=== PATIENT | female | born 1950 | race Caucasian/White ===

== ENCOUNTER → 2016-10-13 | Outpatient (REF) | payer MEDICARE ==
[2016-10-13 12:44] LABS: ALBUMIN 3.5 GM/DL (3.2-5.2); ALBUMIN/GLOBULIN RATIO 1.17 (1.00-1.93); ALKALINE PHOSPHATASE 80 U/L (45-117); ALT/SGPT 26 U/L (12-78); ANION GAP 11 MEQ/L (8-16); AST/SGOT 12 U/L (15-37); BILIRUBIN,TOTAL 0.4 MG/DL (0.2-1.0); BLOOD UREA NITROGEN 17 MG/DL (7-18); CALCIUM LEVEL 9.3 MG/DL (8.8-10.2); CARBON DIOXIDE LEVEL 29 MEQ/L (21-32); CHLORIDE LEVEL 102 MEQ/L (98-107); CHOLESTEROL LEVEL 250 MG/DL (<200); CREATININE FOR GFR 0.87 MG/DL (0.55-1.02); GLOMERULAR FILTRATION RATE > 60.0 (>45); GLUCOSE, FASTING 87 MG/DL (80-110); POTASSIUM SERUM 3.9 MEQ/L (3.5-5.1); SODIUM LEVEL 142 MEQ/L (136-145); TOTAL PROTEIN 6.5 GM/DL (6.4-8.2); TRIGLYCERIDES LEVEL 224 MG/DL (<150)
== END ==
LOC: M LABDRAW1 11:42
PROVIDERS: ATTEND Emergency Medicine
DX: M35.3 Polymyalgia rheumatica (principal); I10 Essential (primary) hypertension; E78.2 Mixed hyperlipidemia

== ENCOUNTER → 2016-11-15 | Outpatient (REF) | payer MEDICARE | LOC: M LABDRAW1 11:24 | PROVIDERS: ATTEND Emergency Medicine | DX: M35.3 Polymyalgia rheumatica (principal) ==

== ENCOUNTER → 2016-12-06 | Outpatient (REF) | payer MEDICARE | LOC: M LABDRAW1 10:58 | PROVIDERS: ATTEND Emergency Medicine | DX: M35.3 Polymyalgia rheumatica (principal) ==

== ENCOUNTER → 2017-01-11 | Outpatient (REF) | payer MEDICARE | LOC: M LABDRAW1 11:31 | PROVIDERS: ATTEND Emergency Medicine | DX: M35.3 Polymyalgia rheumatica (principal) ==

== ENCOUNTER → 2017-02-10 | Outpatient (REF) | payer MEDICARE | LOC: M LABDRAW1 12:02 | PROVIDERS: ATTEND Emergency Medicine | DX: M35.3 Polymyalgia rheumatica (principal) ==

== ENCOUNTER → 2017-03-07 | Outpatient (REF) | payer MEDICARE ==
[2017-03-07 11:50] LABS: ALBUMIN 3.6 GM/DL (3.2-5.2); ALKALINE PHOSPHATASE 87 U/L (45-117); ALT/SGPT 25 U/L (12-78); ANION GAP 6 MEQ/L (8-16); AST/SGOT 12 U/L (15-37); BILIRUBIN,TOTAL 0.5 MG/DL (0.2-1.0); BLOOD UREA NITROGEN 15 MG/DL (7-18); CALCIUM LEVEL 9.2 MG/DL (8.8-10.2); CARBON DIOXIDE LEVEL 30 MEQ/L (21-32); CHLORIDE LEVEL 99 MEQ/L (98-107); CHOLESTEROL LEVEL 254 MG/DL (<200); CREATININE FOR GFR 0.88 MG/DL (0.55-1.02); FREE T4 1.42 NG/DL (0.76-1.46); GLOMERULAR FILTRATION RATE > 60.0 (>45); GLUCOSE, FASTING 91 MG/DL (80-110); POTASSIUM SERUM 3.4 MEQ/L (3.5-5.1); SODIUM LEVEL 135 MEQ/L (136-145); TOTAL PROTEIN 6.6 GM/DL (6.4-8.2); TRIGLYCERIDES LEVEL 256 MG/DL (<150)
== END ==
LOC: M LABDRAW1 11:14
PROVIDERS: ATTEND Emergency Medicine
DX: M35.3 Polymyalgia rheumatica (principal); I10 Essential (primary) hypertension; E78.2 Mixed hyperlipidemia; E03.9 Hypothyroidism, unspecified; E55.9 Vitamin D deficiency, unspecified

== ENCOUNTER → 2017-04-12 | Outpatient (REF) | payer MEDICARE ==
[~2017-04-12] MED LIST: ASPI1TAB PO; CALC600T57 PO; DRIS50002 PO; LEVO137T2 PO; LOSA100T5 PO; METO1TAB7 PO; MULT1TAB10 PO; OMEP40CA2 PO; PRED5TA PO; SPIR25TA2 PO
== END ==
LOC: M LABDRAW1 13:49
PROVIDERS: ATTEND Emergency Medicine
DX: M35.3 Polymyalgia rheumatica (principal)

== ENCOUNTER → 2017-05-10 | Outpatient (REF) | payer MEDICARE | LOC: M LABDRAW1 11:29 | PROVIDERS: ATTEND Emergency Medicine | DX: M35.3 Polymyalgia rheumatica (principal) ==

== ENCOUNTER → 2017-05-24 | Outpatient (REF) | payer MEDICARE ==
[2017-05-24 11:13] LABS: ALBUMIN 3.4 GM/DL (3.2-5.2); ANION GAP 7 MEQ/L (8-16); BLOOD UREA NITROGEN 17 MG/DL (7-18); CALCIUM LEVEL 9.3 MG/DL (8.8-10.2); CARBON DIOXIDE LEVEL 29 MEQ/L (21-32); CHLORIDE LEVEL 105 MEQ/L (98-107); CREATININE FOR GFR 0.79 MG/DL (0.55-1.02); GLOMERULAR FILTRATION RATE > 60.0 (>45); GLUCOSE, FASTING 94 MG/DL (80-110); PHOSPHORUS LEVEL 3.6 MG/DL (2.5-4.9); SODIUM LEVEL 141 MEQ/L (136-145)
== END ==
LOC: M LABDRAW1 10:20
PROVIDERS: ATTEND Emergency Medicine
DX: M35.3 Polymyalgia rheumatica (principal); I10 Essential (primary) hypertension

== ENCOUNTER → 2017-05-25 | Outpatient (REF) | payer MEDICARE ==
[2017-05-25 13:09] LABS: BLOOD UREA NITROGEN 20 MG/DL (7-18); CREATININE FOR GFR 0.77 MG/DL (0.55-1.02); GLOMERULAR FILTRATION RATE > 60.0 (>45)
== END ==
LOC: M LABDRAW1 07:42
PROVIDERS: ATTEND Surgery
DX: R59.9 Enlarged lymph nodes, unspecified (principal)

== ENCOUNTER → 2017-05-30 | Outpatient (CLI) | payer MEDICARE ==
[~2017-05-30] MED LIST changes: +ISOVUE-370 76% 100ML VIAL (Q9967) As Ordered ONE
--- NOTE | 2017-05-30 09:20 | REP ---
Clinical: Adenopathy. Technique: Axial contrast enhanced images from the thoracic inlet to the upper abdomen using 100 ml Isovue 370 intravenous contrast material with coronal and sagittal re-formations. Comparison: None. Findings: In the anterior, subpleural left upper lobe there is a 3.5 x 2.5 x 2.0 cm ill-defined area of consolidation/density with suggestions for scarring/fibrosis extending towards the hilum (images 25 - 35). While these findings may be related to prior radiation therapy for left breast malignancy, an acute process including pneumonia and malignancy cannot be excluded. The bilateral lung cedeno are otherwise well aerated. No pleural effusion. No pneumothorax. Tracheobronchial tree is patent. Partially calcified subcarinal and left hilar lymph nodes are identified which may also be in keeping with prior therapeutic changes. Mildly prominent lymph nodes in the left axillary region measure up to 10 mm short axis diameter and a solitary lymph node in the left thoracic inlet measures approximately 19 mm short axis diameter (image 5). Postoperative changes involving the left breast are consistent with history of prior left breast cancer. The osseous structures are relatively unremarkable and without focal osseous abnormality. Limited evaluation of the upper abdomen demonstrates normal bilateral adrenal glands. Impression: 3.5 cm ill-defined mass/density in the subpleural anterior left upper lobe. Mildly prominent lymph nodes in the left axillary region and left thoracic inlet. While these findings may be chronic post-therapeutic type changes related to prior breast cancer treatment, active pathology cannot be excluded. Follow-up examination in 3 months and/or PET-CT correlation may be warranted. Signed by Yo Walton MD 05/30/2017 09:12 A
--- NOTE | 2017-05-30 12:56 | REP ---
CT NECK WITH CONTRAST: HISTORY: Enlarged lymph nodes. CONTRAST: Isovue-370, 100 mL. The naso-, brennon-, and hypopharynx, larynx, and subglottic trachea are normal in appearance. The salivary glands are normal in size and density. The thyroid gland is small in size. Enlarged lymph nodes are present in the left supraclavicular area. These measure 1.3 to 2.4 cm in size. Small lymph nodes less than 1 cm in size are present in the __internal jugular chains, posterior triangles, and submandibular areas. Atherosclerotic calcification is present at the right carotid bifurcation. Degenerative change is present in the cervical spine. The lung apices are clear. The visualized sinuses are clear. IMPRESSION: There is left supraclavicular lymphadenopathy, as described above. Signed by Marco A Orosco MD 05/30/2017 01:09 P
== END ==
LOC: M RAD 07:31
PROVIDERS: ATTEND Surgery
DX: R59.0 Localized enlarged lymph nodes (principal); D38.1 Neoplasm of uncertain behavior of trachea, bronchus and lung
CPT/HCPCS: 70491; 71260; Q9967

== ENCOUNTER → 2017-06-12 | Outpatient (CLI) | payer MEDICARE ==
[~2017-06-12] MED LIST changes: -ISOVUE-370 76% 100ML VIAL (Q9967) As Ordered ONE
--- NOTE | 2017-06-12 21:36 | ECGEPIP ---
Stationary ECG Study [facility] Test Date: 2017-06-12 Pat Name: CANDIDO PEARSON Department: Room: - Gender: F Field Contact Person: : 1950 Requested By: GEOVANNI Molina Order Number: [id number] Reading MD: Greg Huizar Measurements Intervals [place] Rate: 81 P: 38 SC: 142 QRS: -3 QRSD: 86 T: 22 QT: 356 QTc: 416 Interpretive Statements Normal sinus rhythm with PACs Comparison tracing not on file Electronically Signed On 06-12-2017 21:36:27 EDT by Greg Huizar
== END ==
LOC: M EKG 07:47
PROVIDERS: ATTEND Anesthesiology
DX: Z01.818 Encounter for other preprocedural examination (principal); R59.9 Enlarged lymph nodes, unspecified; I10 Essential (primary) hypertension; E03.9 Hypothyroidism, unspecified; K21.9 Gastro-esophageal reflux disease without esophagitis; K57.30 Diverticulosis of large intestine without perforation or abscess without bleeding; M19.90 Unspecified osteoarthritis, unspecified site

== ENCOUNTER 2017-06-13 10:38 | Day surgery (SDC) | payer MEDICARE ==
[~2017-06-13] VITALS: Ht 154.9 cm; Wt 90.7 kg
[~2017-06-13 10:38] MED LIST changes: +KETOROLAC 60 MG/2 ML VIAL (J1885) As Ordered ONE; +LIDOCAINE 2% INJ 100 MG/5 ML SDV (FOR ANES.) As Ordered ONE; +MIDAZOLAM INJ 2 MG/2 ML VIAL (J2250) As Ordered ONE; +ONDANSETRON 4MG/2ML VIAL (J2405) As Ordered ONE; +PROPOFOL 200 MG/20 ML VIAL As Ordered ONE; +dexameTHASONE 4 MG/ML 1ML VIAL (J1100) As Ordered ONE; +fentaNYL 100 MCG/2 ML INJECTION (J3010) As Ordered ONE
[2017-06-13] MEDS ORDERED: LR 1,000 ML IV SCH (10:45)
[2017-06-13] MEDS ORDERED: ceFAZolin SOD 1 GM in D5W MINI-BAG PLUS 50 ML IV ONE (11:00)
[2017-06-13] MEDS ORDERED: LIDOCAINE 1% SDV 5 ML VIAL SQ ONE (11:00)
[2017-06-13] MEDS ORDERED: ISOSULFAN BLUE(LYMPHAZURIN) 1% 50MG/5ML VIAL (Q9968) As Ordered ONE (12:59)
[2017-06-13] MEDS ORDERED: BUPIVACAINE/EPIN 0.25% 30 ML VIAL As Ordered ONE (12:59)
--- NOTE | 2017-06-13 13:51 | RO ---
DATE OF PROCEDURE: 06/13/2017 PREOPERATIVE DIAGNOSIS: Supraclavicular enlarged lymph nodes/left neck lymph nodes. POSTOPERATIVE DIAGNOSIS: Supraclavicular enlarged lymph nodes/left neck lymph nodes. PROCEDURE PERFORMED: Excision of left supraclavicular lymph nodes. SURGEON: Dr. Hossein Nunes. ANESTHESIA: Local plus sedation. ESTIMATED BLOOD LOSS: Minimal. FLUIDS: Crystalloid. DESCRIPTION OF PROCEDURE: The patient was brought to the operating room was given IV sedation and was prepped and draped in sterile fashion. Local lidocaine mixed with epinephrine was infiltrated in the skin. In the subcutaneous tissue overlying the lesion in the subcutaneous area in the left neck CT had confirmed that there was multiple enlarged lymph nodes along this tract into the mediastinum and this incision was made with 15-blade. Blunt dissection was carried down through the subcutaneous tissue down through platysma and the lymph node could be palpated. Using some blunt dissection, but mostly electrocautery and the subcutaneous tissue to take down the fine attachments as well as some small branching lymphatics, the lesion was removed in its entirety. Additional lymph nodes could be palpated more distally/deeper in the neck. Once this lymph node, actually was two lymph nodes which refused together were removed, the inguinal area was copiously irrigated until clear. The operative field was clean and dry and the platysma was closed with #3-0 Vicryl. dermis was closed with #3-0 Vicryl, #4-0 Vicryl was used to approximate the skin. Steri-Strips and a dry sterile dressing was applied. The patient was awakened from her sedation brought to recovery room awake, alert and hemodynamically stable. Sponge and needle counts correct times two.
[2017-06-13 14:35] VITALS: BP 149/83
== END 2017-06-13 14:39 | disposition home or self-care (01) ==
LOC: M SDC 10:38
PROVIDERS: ATTEND Surgery
DX: R59.0 Localized enlarged lymph nodes (principal); I10 Essential (primary) hypertension; E03.9 Hypothyroidism, unspecified; K57.32 Diverticulitis of large intestine without perforation or abscess without bleeding; K21.9 Gastro-esophageal reflux disease without esophagitis; M12.9 Arthropathy, unspecified; M35.3 Polymyalgia rheumatica; Z88.7 Allergy status to serum and vaccine; Z79.899 Other long term (current) drug therapy; Z79.82 Long term (current) use of aspirin; Z85.3 Personal history of malignant neoplasm of breast; Z90.710 Acquired absence of both cervix and uterus; Z92.21 Personal history of antineoplastic chemotherapy; Z92.3 Personal history of irradiation; Z87.891 Personal history of nicotine dependence
CPT/HCPCS: 38500; 88305; 88341; 88342; J0690; J1885; J2250; J2405; J3010

== ENCOUNTER → 2017-06-23 | Outpatient (REF) | payer MEDICARE ==
[~2017-06-23] MED LIST changes: -KETOROLAC 60 MG/2 ML VIAL (J1885) As Ordered ONE; -LIDOCAINE 2% INJ 100 MG/5 ML SDV (FOR ANES.) As Ordered ONE; -MIDAZOLAM INJ 2 MG/2 ML VIAL (J2250) As Ordered ONE; -ONDANSETRON 4MG/2ML VIAL (J2405) As Ordered ONE; -PROPOFOL 200 MG/20 ML VIAL As Ordered ONE; -dexameTHASONE 4 MG/ML 1ML VIAL (J1100) As Ordered ONE; -fentaNYL 100 MCG/2 ML INJECTION (J3010) As Ordered ONE
[2017-06-23 12:19] LABS: ALBUMIN 3.5 GM/DL (3.2-5.2); ANION GAP 8 MEQ/L (8-16); BLOOD UREA NITROGEN 14 MG/DL (7-18); CALCIUM LEVEL 9.5 MG/DL (8.8-10.2); CARBON DIOXIDE LEVEL 28 MEQ/L (21-32); CHLORIDE LEVEL 98 MEQ/L (98-107); GLOMERULAR FILTRATION RATE > 60.0 (>45); GLUCOSE, FASTING 97 MG/DL (80-110); PHOSPHORUS LEVEL 3.4 MG/DL (2.5-4.9); POTASSIUM SERUM 3.9 MEQ/L (3.5-5.1); SODIUM LEVEL 134 MEQ/L (136-145)
== END ==
LOC: M LABDRAW1 09:22
PROVIDERS: ATTEND Emergency Medicine
DX: M35.3 Polymyalgia rheumatica (principal); I10 Essential (primary) hypertension

== ENCOUNTER → 2017-07-03 | Outpatient (CLI) | payer MEDICARE ==
--- NOTE | 2017-07-03 14:01 | REP ---
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 Uncertain etiology. Comparison mammography August 26, 2014, August 31, 2015, and September 07, 2016. MAMMOGRAPHIC FINDINGS: There are post-treatment changes including deformity in the left superior and lateral breast unchanged from both prior studies. No neodensity is seen. There is a surgical clip in the left axilla. There is a calcification in the superolateral quadrant on the left as before. No spiculation, architectural distortion, suspicious microcalcification, or worrisome skin change is seen on either side. IMPRESSION: Post-treatment changes on the left which are stable mammographically. BIRADS category 2 benign bilateral breast imaging. Repeat screening mammography would be indicated in 1 year. BI-RADS/ACR category 2 mammogram. Benign finding(s). Routine annual screening mammography (for women over age 40). This mammogram was interpreted with the aid of an FDA-approved computer-aided detection system. The patient states she/he had a clinical breast exam in June 2017 The patient letter being requested is M2. Signed by Aram Judd MD 07/03/2017 02:16 P
== END ==
LOC: M RAD 12:52
PROVIDERS: ATTEND Internal Medicine Medical Oncology
DX: C50.912 Malignant neoplasm of unspecified site of left female breast (principal); R91.1 Solitary pulmonary nodule

== ENCOUNTER → 2017-07-04 | Outpatient (CLI) | payer MEDICARE ==
--- NOTE | 2017-07-04 17:07 | REP ---
PET/CT: History: Malignant neoplasm lymph node. Unknown primary. Comparisons: Comparison soft-tissue neck CT study is May 30, [address] study from the same date. TECHNIQUE: 1 hour 49 minutes following the intravenous injection of a 8.7 mCi dose of F-18 FDG, three-dimensional PET scintigraphy is acquired from the skull base to the proximal thighs. Triplanar noncontrast CT scanning is acquired through the same anatomic range for attenuation correction, and image registration with scan parameters optimized to minimize radiation exposure to the patient. PET scintigraphy and CT datasets were fused and displayed on a workstation with multiplanar and projection display capability. PET/CT Findings: There is fairly extensive hypermetabolic uptake in multiple shayy foci involving the left axilla, the left subclavicular, and left supraclavicular lymph node chains as well as one small left internal jugular lymph node. Maximum standard uptake value in the highest lymph node in the left neck is 20.8. Maximum standard uptake value in the large confluent shayy mass in the left thoracic inlet supraclavicular region is 24.7. There is a small shayy focus just anterior to the left thyroid gland with maximum standard uptake value 7.8. The left subpectoral lymph node has maximum standard uptake value of 16.1. The largest left axillary node has maximum standard uptake value of 17.8. There is post-treatment change in the left breast. There is a tiny nodule in the medial left breast which is hypermetabolic. Maximum standard uptake value is 5.1 in this 4-5 mm nodule. No intrathoracic hypermetabolic uptake is seen. The left upper lobe peripheral subpleural opacity in the left chest shows non hypermetabolic uptake, maximum standard uptake value 2.2. No abnormal hypermetabolic uptake is seen in the liver. No abnormal abdominal or pelvic hypermetabolic FDG accumulation is seen. No suspicious skeletal hypermetabolic uptake is seen. Impression: Findings most compatible with recurrent left breast malignancy with a 5 mm hypermetabolic nodule in the medial left breast soft tissues and left axillary, left retro pectoral, left supraclavicular and left neck hypermetabolic shayy uptake. Non hypermetabolic uptake is seen in the left upper lobe pulmonary parenchymal opacity. Signed by Aram Judd MD 07/04/2017 05:33 P
== END ==
LOC: M PLARAD 12:14
PROVIDERS: ATTEND Surgery
DX: C77.9 Secondary and unspecified malignant neoplasm of lymph node, unspecified (principal); Z85.3 Personal history of malignant neoplasm of breast
CPT/HCPCS: 78815; A9552

== ENCOUNTER → 2017-07-06 | Outpatient (CLI) | payer MEDICARE ==
--- NOTE | 2017-07-06 14:33 | REP ---
WHOLE BODY RADIONUCLIDE BONE SCAN: HISTORY: Left breast carcinoma. Left lung mass. Left supraclavicular adenopathy. TECHNIQUE: 21.9 mCi technetium 99m MDP is injected and standard whole body bone scan imaging is acquired. SCINTIGRAPHIC FINDINGS: There is a normal distribution of skeletal uptake with bilateral renal and bladder uptake seen. There is no evidence to suggest skeletal metastatic disease. There is mild arthritic uptake in the acromioclavicular joints bilaterally and in the 1st MTP joints of each foot. There is minimal arthritic uptake in the hips. IMPRESSION: No evidence of skeletal metastatic disease. Signed by Aram Judd MD 07/06/2017 05:11 P
== END ==
LOC: M RAD 10:40
PROVIDERS: ATTEND Internal Medicine Medical Oncology
DX: C50.912 Malignant neoplasm of unspecified site of left female breast (principal); R91.8 Other nonspecific abnormal finding of lung field; R59.9 Enlarged lymph nodes, unspecified
CPT/HCPCS: 78306; A9503

== ENCOUNTER → 2017-07-10 | Outpatient (REF) | payer MEDICARE ==
[2017-07-10 19:18] LABS: INR 0.91
== END ==
LOC: M LAB REF 17:07
PROVIDERS: ATTEND Internal Medicine Medical Oncology
DX: C50.919 Malignant neoplasm of unspecified site of unspecified female breast (principal)

== ENCOUNTER → 2017-07-19 | Outpatient (CLI) | payer MEDICARE ==
[~2017-07-19] MED LIST changes: +PROHANCE 279.3MG/ML 15ML VIAL (A9576) As Ordered ONE; +PROHANCE 279.3MG/ML 5ML VIAL (A9576) As Ordered ONE
--- NOTE | 2017-07-19 11:14 | REP ---
MRI BRAIN WITHOUT AND WITH IV CONTRAST: HISTORY: Newly diagnosed breast carcinoma. Question metastases. TECHNIQUE: Pre- and post-gadolinium enhanced imaging is acquired. T1 and T2-weighted sequences include spin echo, fast spin echo, FLAIR, and diffusion weighted scans. The gadolinium enhancement dose is 18 mL of intravenous ProHance. MRI FINDINGS: Bony calvarium is intact. No intraorbital abnormality is seen. The deep facial and skull base soft tissues are unremarkable. There is no MR evidence of significant paranasal sinus disease. Diffusion weighted scan show no evidence to suggest acute ischemia. There is no evidence of intracranial hemorrhage. No significant abnormal white matter lesion is seen. Post gadolinium enhanced images show enhancement of normal vascular structures. No abnormal gadolinium enhancement is seen. IMPRESSION: There is no evidence of intracranial metastatic disease. No acute intracranial lesion. Signed by Aram Judd MD 07/19/2017 02:17 P
== END ==
LOC: M RAD 09:21
PROVIDERS: ATTEND Internal Medicine Medical Oncology
DX: C50.912 Malignant neoplasm of unspecified site of left female breast (principal); C79.89 Secondary malignant neoplasm of other specified sites
CPT/HCPCS: 70553; A9576

== ENCOUNTER → 2017-08-28 | Outpatient (REF) | payer MEDICARE ==
[~2017-08-28] MED LIST changes: -PROHANCE 279.3MG/ML 15ML VIAL (A9576) As Ordered ONE; -PROHANCE 279.3MG/ML 5ML VIAL (A9576) As Ordered ONE
== END ==
LOC: M LAB REF 13:59
PROVIDERS: ATTEND Internal Medicine Medical Oncology
DX: C50.919 Malignant neoplasm of unspecified site of unspecified female breast (principal)

== ENCOUNTER → 2017-09-21 | Outpatient (REF) | payer MEDICARE | LOC: M LAB REF 12:58 | DX: C50.919 Malignant neoplasm of unspecified site of unspecified female breast (principal) | CPT/HCPCS: 86300 ==

== ENCOUNTER → 2017-10-31 | Outpatient (CLI) | payer MEDICARE | LOC: M PLARAD 10:29 | DX: C50.919 Malignant neoplasm of unspecified site of unspecified female breast (principal) | CPT/HCPCS: 78815 ==

== ENCOUNTER 2017-11-23 08:12 | Day surgery (SDC) | payer MEDICARE ==
[2017-11-23] MEDS ORDERED: LIDOCAINE 1% MDV 20ML VIAL SQ (08:30)
[2017-11-23] MEDS: OFLOXACIN 0.3 % (OCUFLOX) OPTH SOL 5ML OD (09:01)
[2017-11-23] MEDS: TROPICAMIDE 1% OPHTH SOLN 2ML OD (09:01)
[2017-11-23] MEDS: PHENYLEPHRINE 2.5% OPHTH SOL 2ML OD (09:02)
[2017-11-23] MEDS: PROPARACAINE 0.5% OPHTH SOL 15ML OD (09:02)
[2017-11-23] MEDS ORDERED: fentaNYL 100 MCG/2 ML INJECTION (J3010) As Ordered (09:26)
[2017-11-23] MEDS ORDERED: MIDAZOLAM INJ 2 MG/2 ML VIAL (J2250) As Ordered (09:26)
[2017-11-23] MEDS: POVIDONE-IODINE 5% OPHTH PREP SOL 30ML As Ordered (09:45)
[2017-11-23] MEDS: BALANCED SALT IRRIGATION SOLUTION 500ML BAG (FOR OR EYE MACHINE) As Ordered (09:49)
[2017-11-23] MEDS: LIDOCAINE 0.75%/EPINEPHRINE 0.025% IN BSS 1ML SYR INTRACAMERAL (OR ONLY) As Ordered (09:49)
[2017-11-23] MEDS: DUOVISC (0.50ML VISCOAT/0.55ML PROVISC) OPHTH KIT As Ordered (09:54)
[2017-11-23] MEDS: CEFUROXIME 1MG/0.1ML INTRACAMERAL INJ As Ordered (09:54)
== END 2017-11-23 10:38 | disposition home or self-care (01) ==
LOC: M SDC 08:12
DX: H25.11 Age-related nuclear cataract, right eye (principal); I10 Essential (primary) hypertension; E03.9 Hypothyroidism, unspecified; K21.9 Gastro-esophageal reflux disease without esophagitis; K57.32 Diverticulitis of large intestine without perforation or abscess without bleeding; Z87.891 Personal history of nicotine dependence; Z79.899 Other long term (current) drug therapy; M35.3 Polymyalgia rheumatica
CPT/HCPCS: 66984

== ENCOUNTER 2017-11-30 08:06 | Day surgery (SDC) | payer MEDICARE ==
[~2017-11-30 08:06] MED LIST changes: -ASPI1TAB PO; -CALC600T57 PO; -DRIS50002 PO; -LEVO137T2 PO; -LOSA100T5 PO; -METO1TAB7 PO; -MULT1TAB10 PO; -OMEP40CA2 PO; +PHENYLEPHRINE 2.5% OPHTH SOL 2ML OS; -PRED5TA PO; -SPIR25TA2 PO
[2017-11-30] MEDS ORDERED: MIDAZOLAM INJ 2 MG/2 ML VIAL (J2250) As Ordered (08:59)
[2017-11-30] MEDS ORDERED: fentaNYL 100 MCG/2 ML INJECTION (J3010) As Ordered (08:59)
[2017-11-30] MEDS: PROPARACAINE 0.5% OPHTH SOL 15ML OS (09:34)
[2017-11-30] MEDS: TROPICAMIDE 1% OPHTH SOLN 2ML OS (09:34)
[2017-11-30] MEDS: OFLOXACIN 0.3 % (OCUFLOX) OPTH SOL 5ML OS (09:34)
[2017-11-30] MEDS: CEFUROXIME 1MG/0.1ML INTRACAMERAL INJ As Ordered (10:50)
[2017-11-30] MEDS: TRYPAN BLUE 0.06 % 2.25 ML OPHTH SYR (VISIONBLUE) As Ordered (10:50)
[2017-11-30] MEDS: BALANCED SALT IRRIGATION SOLUTION 500ML BAG (FOR OR EYE MACHINE) As Ordered (10:50)
[2017-11-30] MEDS: POVIDONE-IODINE 5% OPHTH PREP SOL 30ML As Ordered (10:50)
[2017-11-30] MEDS: LIDOCAINE 0.75%/EPINEPHRINE 0.025% IN BSS 1ML SYR INTRACAMERAL (OR ONLY) As Ordered (10:50)
[2017-11-30] MEDS: DUOVISC (0.50ML VISCOAT/0.55ML PROVISC) OPHTH KIT As Ordered (10:50)
[2017-11-30] MEDS: ACETYLCHOLINE OPHTH SOLN 1% 2ML (MIOCHOL-E) As Ordered (11:05)
== END 2017-11-30 11:47 | disposition home or self-care (01) ==
LOC: M SDC 08:06
DX: H25.12 Age-related nuclear cataract, left eye (principal); I10 Essential (primary) hypertension; K21.9 Gastro-esophageal reflux disease without esophagitis; Z85.3 Personal history of malignant neoplasm of breast; E03.9 Hypothyroidism, unspecified; Z79.899 Other long term (current) drug therapy
CPT/HCPCS: 66984

== ENCOUNTER → 2017-12-04 | Outpatient (REF) | payer MEDICARE ==
[2017-12-06 00:11] LABS: CA 27.29 20.7 U/mL (0.0-38.6)
== END ==
LOC: M LAB REF 13:52
DX: C50.919 Malignant neoplasm of unspecified site of unspecified female breast (principal)
CPT/HCPCS: 86300

== ENCOUNTER → 2017-12-14 | Outpatient (REF) | payer MEDICARE ==
[2017-12-14 11:52] LABS: TOTAL 25(OH) VITAMIN D 55.4 NG/ML (30.0-100.0)
[2017-12-14 12:04] LABS: ALBUMIN/GLOBULIN RATIO 1.18 (1.00-1.93); ALKALINE PHOSPHATASE 108 U/L (45-117); ALT/SGPT 16 U/L (12-78); ANION GAP 9 MEQ/L (8-16); AST/SGOT 13 U/L (7-37); BILIRUBIN,TOTAL 0.6 MG/DL (0.2-1.0); BLOOD UREA NITROGEN 16 MG/DL (7-18); CALCIUM LEVEL 9.2 MG/DL (8.8-10.2); CARBON DIOXIDE LEVEL 28 MEQ/L (21-32); CHLORIDE LEVEL 103 MEQ/L (98-107); CHOLESTEROL LEVEL 205 MG/DL (<200); CREATININE FOR GFR 1.03 MG/DL (0.55-1.30); FREE T4 1.63 NG/DL (0.76-1.46); GLOMERULAR FILTRATION RATE 56.6 (>45); GLUCOSE, FASTING 112 MG/DL (70-100); HDL CHOLESTEROL 61 MG/DL (>40); LDL CHOLESTEROL 99.2 MG/DL (<100); NON-HDL-C 144 MG/DL; POTASSIUM SERUM 4.2 MEQ/L (3.5-5.1); SODIUM LEVEL 140 MEQ/L (136-145); TOTAL PROTEIN 7.4 GM/DL (6.4-8.2); TRIGLYCERIDES LEVEL 224 MG/DL (<150)
== END ==
LOC: M LABDRAW1 10:43
DX: E55.9 Vitamin D deficiency, unspecified (principal); E03.9 Hypothyroidism, unspecified; E78.2 Mixed hyperlipidemia; I10 Essential (primary) hypertension
CPT/HCPCS: 84443

== ENCOUNTER → 2018-01-11 | Outpatient (REF) | payer MEDICARE ==
[2018-01-13 00:07] LABS: CA 27.29 16.4 U/mL (0.0-38.6)
== END ==
LOC: M LAB REF 13:35
DX: C50.312 Malignant neoplasm of lower-inner quadrant of left female breast (principal); C77.4 Secondary and unspecified malignant neoplasm of inguinal and lower limb lymph nodes; Z17.1 Estrogen receptor negative status [ER-]
CPT/HCPCS: 86300

== ENCOUNTER → 2018-02-12 | Outpatient (REF) | payer MEDICARE ==
[2018-02-14 00:06] LABS: CA 27.29 18.1 U/mL (0.0-38.6)
== END ==
LOC: M LAB REF 12:55
DX: Z08 Encounter for follow-up examination after completed treatment for malignant neoplasm (principal); Z85.3 Personal history of malignant neoplasm of breast
CPT/HCPCS: 86300

== ENCOUNTER → 2018-03-05 | Outpatient (CLI) | payer MEDICARE ==
[~2018-03-05] MED LIST changes: +GASTROGRAFIN SOLUTION 30ML (Q9963) As Ordered; +ISOVUE-370 76% 100ML VIAL (Q9967) As Ordered; -PHENYLEPHRINE 2.5% OPHTH SOL 2ML OS
== END ==
LOC: M RAD 10:17
DX: C50.919 Malignant neoplasm of unspecified site of unspecified female breast (principal)
CPT/HCPCS: Q9963

== ENCOUNTER → 2018-03-22 | Outpatient (REF) | payer MEDICARE ==
[2018-03-24 00:07] LABS: CA 27.29 15.7 U/mL (0.0-38.6)
== END ==
LOC: M LAB REF 10:36
DX: Z85.3 Personal history of malignant neoplasm of breast (principal)
CPT/HCPCS: 86300

== ENCOUNTER → 2018-04-19 | Outpatient (REF) | payer MEDICARE ==
[2018-04-21 00:08] LABS: CA 27.29 18.3 U/mL (0.0-38.6)
== END ==
LOC: M LAB REF 10:44
DX: Z85.3 Personal history of malignant neoplasm of breast (principal)
CPT/HCPCS: 86300

== ENCOUNTER → 2018-06-13 | Outpatient (REF) | payer MEDICARE ==
[2018-06-13 14:26] LABS: ALBUMIN/GLOBULIN RATIO 1.18 (1.00-1.93); ALKALINE PHOSPHATASE 125 U/L (45-117); ALT/SGPT 18 U/L (12-78); ANION GAP 11 MEQ/L (8-16); AST/SGOT 12 U/L (7-37); BILIRUBIN,TOTAL 0.6 MG/DL (0.2-1.0); BLOOD UREA NITROGEN 16 MG/DL (7-18); CALCIUM LEVEL 9.7 MG/DL (8.8-10.2); CARBON DIOXIDE LEVEL 27 MEQ/L (21-32); CHLORIDE LEVEL 101 MEQ/L (98-107); CHOLESTEROL LEVEL 245 MG/DL (<200); CHOLESTEROL RISK RATIO 2.987 (<5); CREATININE FOR GFR 0.93 MG/DL (0.55-1.30); FREE T4 1.52 NG/DL (0.76-1.46); GLOMERULAR FILTRATION RATE > 60.0 (>45); GLUCOSE, FASTING 106 MG/DL (70-100); HDL CHOLESTEROL 82 MG/DL (>40); LDL CHOLESTEROL 118 MG/DL (<100); NON-HDL-C 163 MG/DL; POTASSIUM SERUM 4.2 MEQ/L (3.5-5.1); SODIUM LEVEL 139 MEQ/L (136-145); THYROID STIMULATING HORMONE 0.812 uIU/ML (0.358-3.740); TOTAL 25(OH) VITAMIN D 62.4 NG/ML (30.0-100.0); TOTAL PROTEIN 7.4 GM/DL (6.4-8.2); TRIGLYCERIDES LEVEL 227 MG/DL (<150)
[2018-06-13 15:48] LABS: ESTIMATED AVERAGE GLUCOSE 111 MG/DL (60-110); HEMOGLOBIN A1c 5.5 %
== END ==
LOC: M LABDRAW1 11:46
DX: I10 Essential (primary) hypertension (principal); E78.2 Mixed hyperlipidemia; E03.9 Hypothyroidism, unspecified; R73.01 Impaired fasting glucose
CPT/HCPCS: 84443

== ENCOUNTER → 2018-08-15 | Outpatient (CLI) | payer MEDICARE | LOC: M RAD 14:50 | DX: C50.919 Malignant neoplasm of unspecified site of unspecified female breast (principal); R59.0 Localized enlarged lymph nodes; I65.21 Occlusion and stenosis of right carotid artery; N28.1 Cyst of kidney, acquired; M50.20 Other cervical disc displacement, unspecified cervical region | CPT/HCPCS: Q9963 ==

== ENCOUNTER → 2018-08-24 | Outpatient (CLI) | payer MEDICARE | LOC: M SMT 09:44 | DX: Z01.818 Encounter for other preprocedural examination (principal); J98.4 Other disorders of lung | CPT/HCPCS: 71046 ==

== ENCOUNTER 2018-08-28 10:34 | Day surgery (SDC) | payer MEDICARE ==
[2018-08-28] MEDS: MUPIROCIN 2% OINT 22 GM TUBE TOP (11:00)
[2018-08-28] MEDS: LR 1,000 ML IV (11:00)
[2018-08-28] MEDS: LIDOCAINE 1% MDV 20ML VIAL As Ordered (12:09)
[2018-08-28] MEDS ORDERED: fentaNYL 100 MCG/2 ML INJECTION (J3010) As Ordered (13:10)
[2018-08-28] MEDS ORDERED: PROPOFOL 200 MG/20 ML VIAL As Ordered ×2 (13:10→13:47)
[2018-08-28] MEDS ORDERED: MIDAZOLAM INJ 2 MG/2 ML VIAL (J2250) As Ordered (13:10)
[2018-08-28] MEDS ORDERED: ePHEDrine SULFATE 25 MG/5 ML(5MG/ML) SYRINGE As Ordered (13:13)
[2018-08-28] MEDS: HEPARIN SOD (PORCINE) 5000 UNITS/ML VIAL As Ordered (14:00)
[2018-08-28] MEDS: BUPIVACAINE LIPOSOME/PF 1.3% 20ML VIAL (13.3MG/ML)(EXPAREL)(C9290 PER1MG) As Ordered (14:00)
== END 2018-08-28 15:10 | disposition home or self-care (01) ==
LOC: M SDC 10:34
DX: C50.912 Malignant neoplasm of unspecified site of left female breast (principal); Z45.2 Encounter for adjustment and management of vascular access device; I10 Essential (primary) hypertension; E03.9 Hypothyroidism, unspecified; K21.9 Gastro-esophageal reflux disease without esophagitis; Z79.82 Long term (current) use of aspirin; Z79.899 Other long term (current) drug therapy
CPT/HCPCS: 36561

== ENCOUNTER → 2018-09-10 | Outpatient (CLI) | payer MEDICARE ==
[~2018-09-10] MED LIST changes: +ASPI1TAB PO; +CALC600T57 PO; +CAPE1TAB2 PO; +DRIS50003 PO; -GASTROGRAFIN SOLUTION 30ML (Q9963) As Ordered; -ISOVUE-370 76% 100ML VIAL (Q9967) As Ordered; +LEVO137T2 PO; +LOSA100T5 PO; +METO1TAB7 PO; +MULT1TAB10 PO; +OMEP20CA3 PO; +OMEP40CA2 PO; +PRED5TA PO; +PROC10TA4 PO; +SERT-138 PO; +SPIR-10 PO; +ZOFR8TAB24 PO
--- NOTE | 2018-09-10 10:21 | REP ---
Chest x-ray: Two views. History: Malignant neoplasm of the female breast. Gatjxe-X-Ckig placement. Comparison study: August 28, 2018. Findings: A left subclavian Jkknlq-L-Sics catheter is seen in place with its tip in the expected location of the superior vena cava. There are surgical clips in the left axillary soft tissues. There is a levoconvex thoracolumbar spine curvature unchanged. The lungs are well inflated and free of infiltrate. There is a granulomatous calcification again noted in the left base. No infiltrate is seen. No pleural effusion is noted. Heart is not enlarged. Impression: Levoconvex scoliotic curve. A left-sided Fkyrss-V-Iipu catheter. No acute disease. Electronically Signed by Aram Judd MD 09/10/2018 07:56 P
== END ==
LOC: M SMT 08:25
PROVIDERS: ATTEND Thoracic Surgery (Cardiothoracic Vascular Surgery)
DX: Z01.818 Encounter for other preprocedural examination (principal); C50.919 Malignant neoplasm of unspecified site of unspecified female breast; M53.85 Other specified dorsopathies, thoracolumbar region; J98.4 Other disorders of lung; Z97.8 Presence of other specified devices

== ENCOUNTER → 2018-11-19 | Outpatient (CLI) | payer MEDICARE ==
[~2018-11-19] MED LIST changes: +EMLA CREAM 5GM (LIDOCAINE/PRILOCAINE) As Ordered ONE; +GASTROGRAFIN SOLUTION 30ML (Q9963) As Ordered ONE; +ISOVUE-370 76% 100ML VIAL (Q9967) As Ordered ONE; +ZOLO100T PO
--- NOTE | 2018-11-19 13:30 | REP ---
Clinical: Metastatic breast cancer for restaging. Technique: Axial contrast enhanced images from the thoracic inlet to the upper abdomen with coronal and sagittal re-formations using 100 ml Isovue 370 intravenous contrast material. Comparison: 08/15/2018. Findings: Somewhat nodular 3 cm area of irregular opacity in the subpleural anterior left upper lobe (images 35-45) with associated interstitial scarring remains stable and is likely related to post radiation type change. Remainder of lung cedeno are well-aerated and without further consolidation, significant nodule or mass lesion. No effusion. No pneumothorax. Tracheobronchial tree is patent. Mediastinum demonstrates atherosclerotic changes to the thoracic aorta and coronary arteries without aortic aneurysm or dissection. No cardiomegaly or pericardial effusion. No significant mediastinal, hilar, or axillary adenopathy is appreciated, and the previously noted prominent left axillary lymph nodes have resolved. Calcified lymph nodes are again noted. The osseous structures are intact without focal abnormality appreciated. Impression: 1. Nodular area of opacity in the subpleural anterior left upper lobe remains stable. 2. Previously identified left axillary adenopathy has resolved. 3. No acute mediastinal or pleuroparenchymal process appreciated. Specifically, no obvious evidence for acute recurrence or metastatic disease. Electronically Signed by Yo Walton MD 11/19/2018 01:22 P
--- NOTE | 2018-11-19 13:36 | REP ---
Clinical: History of metastatic breast cancer for restaging. Technique: Axial contrast enhanced images from the lung bases to the pubic symphysis using oral (per protocol) and 100 ml Isovue 370 intravenous contrast material with delayed images of the abdomen as well as coronal and sagittal re-formations. Comparison: 08/15/2018. Findings: Lung bases are clear. Small hiatal hernia. Visualized heart and pericardium within normal limits. Liver, spleen, pancreas, gallbladder, bilateral adrenal glands and kidneys are relatively normal / stable. Subcentimeter renal cysts are again noted and unchanged. No evidence for bowel obstruction. Normal terminal ileum and cecum identified in the right lower quadrant. Scattered colonic and sigmoid diverticula noted without acute diverticulitis. Pelvis demonstrates normal bladder and evidence for prior hysterectomy. No ascites. No free air. No adenopathy. Abdominal aorta without aneurysm or dissection. Musculoskeletal structures demonstrate degenerative changes without focal osseous abnormality. Impression: 1. Small hiatal hernia. 2. Stable subcentimeter renal cysts. 3. No acute abdominopelvic pathology appreciated. 4. Scattered diverticula without acute diverticulitis. Electronically Signed by Yo Walton MD 11/19/2018 01:28 P
--- NOTE | 2018-11-19 13:47 | REP ---
CT NECK WITH CONTRAST: HISTORY: Breast carcinoma. CONTRAST: Isovue 370, 100 mL. COMPARISON: 08/15/2018. The naso-, brennon-, and hypopharynx, larynx and subglottic trachea are normal in appearance. The salivary glands are normal in size and density. The thyroid gland is hypoplastic. Small lymph nodes less than 1 cm in size are present in the internal jugular chains, posterior triangles, and submandibular areas. Atherosclerotic calcification is present at the right carotid bifurcation. Degenerative change is present in the cervical spine. The lung apices are clear. The visualized sinuses are clear. IMPRESSION: There is no neck mass or adenopathy. Electronically Signed by Marco A Orosco MD 11/19/2018 01:54 P
== END ==
LOC: M RAD 11:23
PROVIDERS: ATTEND Internal Medicine Medical Oncology
DX: C50.919 Malignant neoplasm of unspecified site of unspecified female breast (principal); R91.1 Solitary pulmonary nodule; N28.1 Cyst of kidney, acquired; K44.9 Diaphragmatic hernia without obstruction or gangrene; K57.90 Diverticulosis of intestine, part unspecified, without perforation or abscess without bleeding
CPT/HCPCS: 70491; 71260; 74177; Q9963; Q9967

== ENCOUNTER → 2018-12-19 | Outpatient (REF) | payer MEDICARE ==
[~2018-12-19] MED LIST changes: -EMLA CREAM 5GM (LIDOCAINE/PRILOCAINE) As Ordered ONE; -GASTROGRAFIN SOLUTION 30ML (Q9963) As Ordered ONE; -ISOVUE-370 76% 100ML VIAL (Q9967) As Ordered ONE
[2018-12-19 12:26] LABS: ALBUMIN 4.1 GM/DL (3.2-5.2); ALT/SGPT 17 U/L (12-78); BILIRUBIN,TOTAL 0.4 MG/DL (0.2-1.0); BLOOD UREA NITROGEN 14 MG/DL (7-18); CALCIUM LEVEL 9.1 MG/DL (8.8-10.2); CARBON DIOXIDE LEVEL 28 MEQ/L (21-32); CHLORIDE LEVEL 104 MEQ/L (98-107); CHOLESTEROL LEVEL 246 MG/DL (<200); CREATININE FOR GFR 0.84 MG/DL (0.55-1.30); FREE T4 1.14 NG/DL (0.76-1.46); GLOMERULAR FILTRATION RATE > 60.0 (>39); GLUCOSE, FASTING 104 MG/DL (70-100); HDL CHOLESTEROL 75 MG/DL (>40); LDL CHOLESTEROL 128 MG/DL (<100); NON-HDL-C 171 MG/DL; POTASSIUM SERUM 4.4 MEQ/L (3.5-5.1); SODIUM LEVEL 139 MEQ/L (136-145); TOTAL PROTEIN 6.9 GM/DL (6.4-8.2); TRIGLYCERIDES LEVEL 213 MG/DL (<150)
== END ==
LOC: M LABDRAW1 09:46
PROVIDERS: ATTEND Emergency Medicine
DX: I10 Essential (primary) hypertension (principal); E78.2 Mixed hyperlipidemia; E03.9 Hypothyroidism, unspecified; E55.9 Vitamin D deficiency, unspecified

== ENCOUNTER → 2019-01-29 | Outpatient (CLI) | payer MEDICARE ==
[~2019-01-29] MED LIST changes: -ASPI1TAB PO; +ASPI81TA26 PO; +ISOVUE-370 76% 100ML VIAL (Q9967) As Ordered ONE; +MULTCAP PO; +ZANTTAB PO
--- NOTE | 2019-01-30 09:43 | REP ---
CT CHEST WITH IV CONTRAST: CT ANGIO CHEST: TECHNIQUE: Axial contrast enhanced images from the thoracic inlet to the upper abdomen using 100 mL Isovue 370 intravenous contrast material with multiplanar reformations. COMPARISON: 11/19/2018 Calcified granuloma is again seen in the anterior segment of the right upper lobe. Another calcified granuloma is seen in the left lower lobe. The focal ill-defined oval subpleural opacity in the left upper lobe inferolaterally remains unchanged. This likely represents post radiation changes in this portion of the left upper lobe. No new abnormal lung opacities are seen. Multiple metallic clips are seen in the left axillary region. Mediport catheter is noted in the upper left chest wall. There are calcified subcarinal lymph nodes. There are also small calcified left hilar lymph nodes. No suspicious adenopathy is seen in the mediastinal, hilar or axillary regions. There is no pleural or pericardial effusion. The heart is mildly enlarged. There are mild atherosclerotic calcifications of the thoracic aorta without aneurysm. No significant upper abdominal abnormalities are seen. There are degenerative change of the spine. IMPRESSION: Stable CT chest with ill-defined focal left upper lobe opacity in a subpleural location most likely representing post radiation change. No new suspicious parenchymal nodule or adenopathy in the chest. There is evidence of prior granulomatous disease. Electronically Signed by Vu Merritt MD 01/30/2019 03:36 P
--- NOTE | 2019-01-30 10:03 | REP ---
SOFT-TISSUE NECK CT STUDY WITH IV CONTRAST: HISTORY: Restage breast cancer. COMPARISON: Neck CT study is from November 19, 2018. August 15, [address] study is also reviewed. CT CONTRAST DOSE: 100 mL of intravenous Isovue [address] FINDINGS: A left-sided Ianpix-F-Xxcj catheter is again seen. There are degenerative disc changes in the cervical spine. No bony destructive lesion is appreciated. A torus palatinus is again noted unchanged. This is a normal variant. Parotid and submandibular glands are normal and symmetric. Thyroid lobes are quite atrophic. This is unchanged as well. There are four or five left supraclavicular lymph nodes which are normal in size. These are unchanged from the prior study. The largest of these measures 10 mm in greatest diameter x 5 mm in short axis dimension. Just below this, there is a larger left supraclavicular lymph node which measures 12 x 9 x 16 mm. This has increased in size since the November 19, 2018 study when it measured 9 mm in greatest diameter. At this level and just posterior to and there are two other lymph nodes which are slightly larger than on the prior study but which remain normal in size. No other adenopathy is appreciated in the neck. Visualized paranasal sinuses are clear. No intraorbital abnormality is seen. IMPRESSION: Subtle increase in the size of two or three lymph nodes in the left supraclavicular region. The largest of these is borderline measuring 16 mm in greatest diameter. These are the lymph nodes which showed enlargement on August 15, 2018. Electronically Signed by Aram Judd MD 01/30/2019 03:38 P
== END ==
LOC: M RAD 16:10
PROVIDERS: ATTEND Internal Medicine Medical Oncology
DX: C50.912 Malignant neoplasm of unspecified site of left female breast (principal); Z92.3 Personal history of irradiation; R59.9 Enlarged lymph nodes, unspecified
CPT/HCPCS: 70491; 71260; Q9967

== ENCOUNTER → 2019-06-07 | Outpatient (CLI) | payer MEDICARE ==
[~2019-06-07] MED LIST changes: +LIDO2.5C15 TOP; -OMEP20CA3 PO; +OMEP20CA4 PO; +ZANT150T40 PO; -ZANTTAB PO
--- NOTE | 2019-06-07 08:34 | REP ---
CT of the soft tissue neck with contrast Indication: Restaging recurrent breast cancer. Comparison: CT neck of 01/29/2019. Technique: Axial CT of the soft tissue neck was performed following the uneventful intravenous administration of 100 ml Isovue 370. Coronal and sagittal soft tissue reformatted images were provided. Findings: A partially imaged left-sided central venous catheter is again seen. When compared to the 01/29/2019 examination, left supraclavicular lymph nodes have decreased in size. For example, an anterior 10 x 7 mm left supraclavicular lymph node, previously measured 12 x 8 mm (axial image 59). A posterior 7 x 5 mm irregularly marginated left supraclavicular lymph node previously measured 11 x 9 mm (image 59 of the axial series). Some smaller left supraclavicular lymph nodes are no longer visible. There are no newly enlarged cervical lymph nodes. Within the remainder of the neck, the nasal passages and nasopharynx, oropharynx and oral cavity, hypopharynx, upper airway and esophagus are within normal limits. Note is made of torus palatinus. There is mild pleural parenchymal scarring within the lung apices. There is to maintain residual thyroid tissue, similar to prior. The submandibular glands and parotid glands are unremarkable. The imaged portion of the brain parenchyma is within normal limits. The visible paranasal sinuses and mastoid air cells are clear. The the patient is edentulous. No suspicious focal osseous lesion is identified. Impression: Compared to the 01/29/2019 examination, there is decreased tumor burden as evidenced by decreased size and number of left supraclavicular lymph nodes. No new evidence of disease. Electronically Signed by Alisha Low MD 06/07/2019 08:26 A
--- NOTE | 2019-06-07 09:04 | REP ---
CT CHEST WITH IV CONTRAST: HISTORY: Restaging recurrent breast carcinoma. Comparison is made with chest CT study from January 29, 2019 and November 19, 2018. CT CONTRAST DOSE: 100 mL of intravenous Isovue [address] FINDINGS: Stable post radiation fibrosis changes are again noted in the left upper lobe anterolaterally unchanged from the two prior studies. There are surgical clips in the left axilla and a left-sided Sytvkd-H-Qnjw catheter is seen. There is no evidence of axillary or supraclavicular lymphadenopathy. No mediastinal or hilar adenopathy is seen. No pleural or pericardial effusion is observed. No adrenal lesion is seen. There are granulomatous calcifications in the spleen. A tiny 4 mm cyst is again noted in the dome of the liver unchanged. There is a 4 mm noncalcified nodular opacity in the right middle lobe on page 54 of 113 in series 404 of today's study. This is visible in retrospect on the patient's prior CT studies dating back to May 30, 2017. There are scattered pulmonary parenchymal calcified benign granulomas as well also unchanged. No new pulmonary nodule is seen. Impression: No active disease. 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 Electronically Signed by Aram Judd MD 06/07/2019 09:18 A
== END ==
LOC: M RAD 07:40
PROVIDERS: ATTEND Nurse Practitioner Family
DX: Z85.3 Personal history of malignant neoplasm of breast (principal)
CPT/HCPCS: 70491; 71260; Q9967

== ENCOUNTER → 2019-06-19 | Outpatient (REF) | payer MEDICARE ==
[~2019-06-19] MED LIST changes: -ISOVUE-370 76% 100ML VIAL (Q9967) As Ordered ONE; +KEFL250C11 PO
[2019-06-19 13:31] LABS: BILIRUBIN,TOTAL 0.3 MG/DL (0.2-1.0); CALCIUM LEVEL 9.2 MG/DL (8.8-10.2); CHOLESTEROL RISK RATIO 4.78 (<5); FREE T4 1.24 NG/DL (0.76-1.46); GLOMERULAR FILTRATION RATE 58.4 (>39); POTASSIUM SERUM 4.2 MEQ/L (3.5-5.1); THYROID STIMULATING HORMONE 1.77 uIU/ML (0.358-3.740); TOTAL 25(OH) VITAMIN D 49.3 NG/ML (30.0-100.0); TOTAL PROTEIN 6.8 GM/DL (6.4-8.2)
[2019-06-19 13:32] LABS: HEMOGLOBIN A1c 5.1 %
== END ==
LOC: M LABDRAW1 11:49
PROVIDERS: ATTEND Physician Assistant
DX: I10 Essential (primary) hypertension (principal); E78.2 Mixed hyperlipidemia; E03.9 Hypothyroidism, unspecified; E55.9 Vitamin D deficiency, unspecified; R73.01 Impaired fasting glucose; Z79.899 Other long term (current) drug therapy; Z79.82 Long term (current) use of aspirin

== ENCOUNTER → 2019-10-23 | Outpatient (CLI) | payer MEDICARE ==
[~2019-10-23] MED LIST changes: +GASTROGRAFIN SOLUTION 30ML (Q9963) As Ordered ONE; +ISOVUE-370 76% 100ML VIAL (Q9967) As Ordered ONE; +OMEP1CAP73 PO; -OMEP20CA4 PO; -OMEP40CA2 PO; +OMEP40CA97 PO; +VITA50005 PO
--- NOTE | 2019-10-23 09:35 | REPVR ---
PROCEDURE INFORMATION: Exam: CT Neck With Contrast Exam date and time: 10/23/2019 9:01 AM Age: 69 years old Clinical indication: Condition or disease; Cancer; Other: Restaging breast CA ? mets; Additional info: Restaging breast CA, mets? TECHNIQUE: Imaging protocol: Computed tomography images of the neck with intravenous contrast. Radiation optimization: All CT scans at this facility use at least one of these dose optimization techniques: automated exposure control; mA and/or kV adjustment per patient size (includes targeted exams where dose is matched to clinical indication); or iterative reconstruction. Contrast material: Isovue 370; Contrast volume: 75 ml; Contrast route: IV; COMPARISON: CT Neck with contrast 06/07/2019 8:08 AM FINDINGS: Orbits: Bilateral prior cataract surgery. Nasopharynx: Unremarkable. Oropharynx: See Bones/joints Finding. Hypopharynx: Unremarkable Larynx: Unremarkable. Normal epiglottis. Retropharyngeal space: Unremarkable. Submandibular/Parotid glands: Normal. Glands are normal in size. Thyroid: Small bilateral thyroid lobes (status post ablative therapy?). Lymph nodes: Unremarkable. No lymphadenopathy. Trachea: Visualized trachea is unremarkable. Lungs: Unremarkable as visualized. Vasculature: Left subclavian venous catheter, partially imaged. Dental: Edentulous maxilla and mandible. Bones/joints: Bones/joints. Torus palatinus, normal variant. Moderate atlantodental osteoarthritis. C5-6 degenerative disc disease with mild spondylosis. No destructive bony process identified. Soft tissues: Unremarkable. No significant soft tissue swelling. IMPRESSION: 1. No evidence of cervical metastatic disease. 2. Please see the CT chest report of the same date for additional findings. Electronically signed by: Colin Bey On 10/23/2019 09:34:48 AM
--- NOTE | 2019-10-23 12:31 | REP ---
CT of the chest with IV contrast for restaging of breast carcinoma: Comparisons are 06/07/2019 and 05/30/2017. There are surgical clips in the left axilla, unchanged. There is a focal zone of post radiation fibrosis anterolaterally in the left upper lobe, unchanged. There is a stable noncalcified 4 mm lung nodule in the right middle lobe on image 53, unchanged from both prior studies, therefore likely benign. There is a calcified granuloma in the right upper lobe anteriorly on image 27 and in the left lower lobe on image 65, unchanged. There are no new lung nodules or mass. There are no infiltrates or pleural effusions. There is no mediastinal, hilar or axillary lymph node enlargement. The thoracic aorta is unremarkable. Cardiac size is normal. No pericardial effusion. The visualized upper abdominal contents are unremarkable. Calcified granulomas are again identified in the spleen. Impression: There are stable findings. There are no new lung nodules or masses and no acute infiltrates or pleural effusions. There is no adenopathy. There are no lytic, blastic or destructive skeletal changes. Electronically Signed by Vu Crawford MD 10/23/2019 12:23 P
--- NOTE | 2019-10-23 12:50 | REP ---
CT of the abdomen and pelvis with IV and oral contrast for restaging of breast carcinoma, multiphase imaging: Comparison is 2018. The studies performed contiguously with the chest CT this same date. The visualized lung cedeno are unremarkable except for a left lower lobe calcified granuloma. The hepatic parenchyma is homogeneous. The gallbladder, pancreas and spleen are unremarkable except for splenic calcified granulomas. The adrenals are unremarkable. There is a small Bosniak type 1 left renal cortical cyst, unchanged. The kidneys are otherwise unremarkable. The abdominal aorta is unremarkable. There is no periaortic adenopathy or mass. The bowel and mesentery are unremarkable except for descending colon/sigmoid colon diverticula without diverticulitis. This is unchanged. Pelvis: There is no adenopathy or ascites. There is a hysterectomy. Vaginal cuff and adnexa are unremarkable. The bladder is unremarkable. There are no lytic, blastic or destructive skeletal changes. There is lumbar degenerative disc disease at L4-5. Impression: No evidence of metastatic disease. Stable Bosniak type 1 left renal cyst, unchanged. L4-5 degenerative disc disease, unchanged. Electronically Signed by Vu Crawford MD 10/23/2019 12:41 P
== END ==
LOC: M RAD 07:24
PROVIDERS: ATTEND Internal Medicine Medical Oncology
DX: C50.919 Malignant neoplasm of unspecified site of unspecified female breast (principal)
CPT/HCPCS: 70491; 71260; 74177; Q9963; Q9967

== ENCOUNTER → 2019-10-24 | Outpatient (CLI) | payer MEDICARE ==
[~2019-10-24] MED LIST changes: -GASTROGRAFIN SOLUTION 30ML (Q9963) As Ordered ONE; -ISOVUE-370 76% 100ML VIAL (Q9967) As Ordered ONE
--- NOTE | 2019-10-25 07:29 | REP ---
Left upper extremity duplex Doppler venous ultrasound. Real time compression and duplex Doppler evaluation of the left upper extremity deep venous system is performed. The left subclavian, jugular, axillary, brachial, basilic and cephalic veins are fully compressible where accessible with transducer pressure, and demonstrate no intraluminal thrombus and normal venous waveforms. There is no evidence of deep venous thrombosis. Impression: No evidence of deep venous thrombosis of the left upper extremity deep vein system. Electronically Signed by Vu Merritt MD 10/24/2019 11:47 A
== END ==
LOC: M RAD 10:55
PROVIDERS: ATTEND Internal Medicine Medical Oncology
DX: M79.602 Pain in left arm (principal)

== ENCOUNTER → 2020-01-28 | Outpatient (CLI) | payer MEDICARE ==
[~2020-01-28] MED LIST changes: +GASTROGRAFIN SOLUTION 30ML (Q9963) As Ordered ONE; +ISOVUE-370 76% 100ML VIAL As Ordered ONE
--- NOTE | 2020-01-28 14:52 | REP ---
REASON: Followup history of breast carcinoma. COMPARISON: Multiple all reviewed, the latest 10/23/2019. CONTRAST: 100 mL Isovue 370. The mediastinum and pulmonary shi are stable. There is no mass or adenopathy. There are no pleural or pericardial effusions. Bone window technique throughout the exam shows the osseous structures to be stable and intact. Evaluation of the lung cedeno shows no change in the appearance of the spiculated pleural-based mixed density mass in the left upper lobe. There is an incidental calcified granuloma in the left lower lobe. There is a tiny stable 4 mm sized nodule in the right middle lobe. No new abnormal nodules, masses or opacities have developed. IMPRESSION: 1. Stable CT examination of the chest. The pleural based, somewhat spiculated mixed density mass seen in the left upper lobe has been stable for years. 2. Other stable findings as described above. Electronically Signed by Deni Mejia DO 01/28/2020 04:23 P
--- NOTE | 2020-01-28 15:05 | REP ---
REASON FOR EXAM: Followup. History of breast carcinoma. All priors were reviewed, the latest of which is dated 10/23/2019. CONTRAST TODAY: 100 mL Isovue-370. The liver, gallbladder, spleen, pancreas, adrenal glands, and kidneys are again seen to be within normal limits. There is an incidental Bosniak class I small left renal cyst. The abdominal aorta and para-aortic regions are within normal limits. There is no free fluid or free air. The bowel loops and their mesenteries are within normal limits. There is no intra-abdominal mass or adenopathy. CT PELVIS: The bowel loops and their mesenteries are within normal limits. There is no pelvic mass or adenopathy. There is no free fluid or free air. Shows no significant changes from prior exams. IMPRESSION: Stable CT findings as described above. There is no evidence of acute disease. Electronically Signed by Deni Mejia DO 01/28/2020 04:23 P
== END ==
LOC: M RAD 11:59
PROVIDERS: ATTEND Internal Medicine Medical Oncology
DX: C50.919 Malignant neoplasm of unspecified site of unspecified female breast (principal); R91.8 Other nonspecific abnormal finding of lung field
CPT/HCPCS: 71260; 74177; Q9963; Q9967

== ENCOUNTER → 2020-03-13 | Outpatient (CLI) | payer MEDICARE ==
[~2020-03-13] MED LIST changes: +CEPH25SS PO; +CEPH500C PO; +ELIQ5TAB PO; -GASTROGRAFIN SOLUTION 30ML (Q9963) As Ordered ONE; -ISOVUE-370 76% 100ML VIAL As Ordered ONE; +MULT-90 PO; +PACL150I IV
--- NOTE | 2020-03-13 10:41 | REP ---
Left hand series: Four views. History: Pain and swelling. Second and third fingers. Findings: Four views of the left hand are compared with left wrist radiographs from June 15, 2008. There is moderate osteoarthritic change at the first carpometacarpal articulation. There is osteoarthritis at the PIP and DIP joints of each of the fingers, most pronounced involving the long and ring finger. DIP joints show significant posterior spurring on these digits. No acute bony erosive changes seen. No soft tissue calcification is seen. There is mild diffuse osteopenia. Impression: Osteoarthritic changes. No acute bony abnormality. Electronically Signed by Aram Judd MD 03/13/2020 10:32 A
== END ==
LOC: M RAD 09:49
PROVIDERS: ATTEND Internal Medicine Medical Oncology
DX: C50.919 Malignant neoplasm of unspecified site of unspecified female breast (principal)

== ENCOUNTER → 2020-03-18 | Outpatient (CLI) | payer MEDICARE ==
[~2020-03-18] MED LIST changes: -MULT-90 PO
--- NOTE | 2020-03-18 10:43 | REP ---
Limited venous ultrasound left neck. History: Rule out thrombus left neck. Findings: Occlusive thrombus is seen in the left internal jugular vein and proximal subclavian veins. The distal subclavian and axillary vein are patent on the left. Impression: Occlusive venous thrombosis of the left internal jugular and proximal subclavian veins. Electronically Signed by Aram Judd MD 03/18/2020 10:34 A
== END ==
LOC: M RAD 09:19
PROVIDERS: ATTEND Internal Medicine Medical Oncology
DX: I82.C12 Acute embolism and thrombosis of left internal jugular vein (principal); I82.B12 Acute embolism and thrombosis of left subclavian vein

== ENCOUNTER → 2020-03-25 | Outpatient (REF) | payer MEDICARE ==
[~2020-03-25] MED LIST changes: -CEPH25SS PO; -CEPH500C PO; -PACL150I IV
[2020-03-25 10:17] LABS: HEMOGLOBIN A1c 5.1 %
[2020-03-25 10:29] LABS: FREE T4 1.17 NG/DL (0.76-1.46); THYROID STIMULATING HORMONE 2.63 uIU/ML (0.358-3.740)
== END ==
LOC: M LAB REF 09:15
PROVIDERS: ATTEND Physician Assistant
DX: R73.01 Impaired fasting glucose (principal); E03.9 Hypothyroidism, unspecified

== ENCOUNTER → 2020-04-15 | Outpatient (CLI) | payer MEDICARE ==
[~2020-04-15] MED LIST changes: +CEPH25SS PO; +CEPH500C PO; +PACL150I IV
--- NOTE | 2020-04-15 15:33 | REP ---
Clinical: Known thrombus for reevaluation and follow-up. Comparison: 03/18/2020. Technique: Real time patricio scale and color Doppler evaluation using linear high frequency transducer. Findings: Current examination now demonstrates nonocclusive thrombus in the left internal jugular and proximal subclavian vein which suggests improvement from prior examination. Axillary, brachial, basilic, and cephalic veins appear patent. Impression: Findings appear improved. Current examination now demonstrates nonocclusive thrombus (previously noted as occlusive thrombus) involving the internal jugular and proximal subclavian veins. Electronically Signed by Yo Walton MD 04/15/2020 03:25 P
== END ==
LOC: M RAD 14:01
PROVIDERS: ATTEND Internal Medicine Medical Oncology
DX: I82.622 Acute embolism and thrombosis of deep veins of left upper extremity (principal)

== ENCOUNTER → 2020-05-19 | Outpatient (CLI) | payer MEDICARE ==
[~2020-05-19] MED LIST changes: +GASTROGRAFIN SOLUTION 30ML (Q9963) As Ordered ONE; +ISOVUE-370 76% 100ML VIAL As Ordered ONE
--- NOTE | 2020-06-18 10:56 | REP ---
CT OF THE ABDOMEN AND PELVIS CLINICAL INDICATION: Breast cancer. Restaging and follow-up. TECHNIQUE: Axial contrast enhanced images from the lung bases to the pubic symphysis using oral (per protocol) and 100 mL Isovue-370 intravenous contrast material with coronal and sagittal reformations, as well as delayed images of the abdomen. COMPARISON: 01/28/2020, 11/19/2018. FINDINGS: Liver, spleen, pancreas, gallbladder, bilateral adrenal glands, and right kidney are normal. Left kidney includes a 1 cm simple mid/lower pole renal cyst unchanged. Evaluation of the enteric system is without obstruction or acute inflammatory process. Normal terminal ileum identified in the right lower quadrant. Sigmoid diverticulosis noted without acute diverticulitis. Evaluation of the pelvis demonstrates a normal bladder and evidence for prior hysterectomy. Very small fat-containing left inguinal hernia noted. No ascites. No free air. No adenopathy. Abdominal aorta and vasculature appear relatively normal. Musculoskeletal structures intact and demonstrate age-related degenerative changes without significant osseous abnormality noted. IMPRESSION: * No acute abdominopelvic pathology appreciated. No evidence for metastatic disease. * Stable 1 cm left simple renal cyst. * Small fat-containing left inguinal hernia. * Sigmoid diverticulosis without acute diverticulitis. MTDD
--- NOTE | 2020-06-18 15:35 | REP ---
CONTRAST-ENHANCED CHEST CT: HISTORY: Breast cancer for restaging and follow up. TECHNIQUE: Axial contrast-enhanced images from the thoracic inlet to the upper abdomen with coronal and sagittal reformations using 100 cc Isovue 370 intravenous contrast material (followed by CT of the abdomen and pelvis). COMPARISON: Multiple prior examinations dating through 05/30/17 FINDINGS: Area of chronic presumed rounded atelectasis in the subpleural anterior left upper lobe remains essentially unchanged, along with linear scarring extending toward the hilum. Small scattered primarily subpleural densities measuring up to 4 mm as well as a 3 mm noncalcified right middle lobe nodule (image 45) and calcified granuloma in the left lower lobe (image 61) all remain stable. No new acute pulmonary parenchymal consolidation, nodule or mass lesion. No pleural effusion. No pneumothorax. The tracheobronchial tree is patent. No acute adenopathy. Calcified hilar and mediastinal lymph nodes are again noted as well as evidence for prior left axillary node dissection. Further evaluation of the mediastinum demonstrates relatively normal thoracic aorta, pulmonary vasculature and heart/pericardium. Infusaport identified with tip in the SVC. No pericardial effusion. Surrounding musculoskeletal structure are intact and without acute osseous abnormality. IMPRESSION: 1. Chronic stable changes including area of presumed chronic rounded atelectasis in the anterior left upper lobe and a few scattered calcified and noncalcified nodules. 2. No acute or suspicious pulmonary parenchymal or mediastinal abnormality noted. MTDD
== END ==
LOC: M RAD 07:06
PROVIDERS: ATTEND Internal Medicine Medical Oncology
DX: C50.919 Malignant neoplasm of unspecified site of unspecified female breast (principal)
CPT/HCPCS: 71260; 74177; Q9963; Q9967

== ENCOUNTER → 2020-05-20 | Outpatient (CLI) | payer MEDICARE ==
[~2020-05-20] MED LIST changes: -GASTROGRAFIN SOLUTION 30ML (Q9963) As Ordered ONE; -ISOVUE-370 76% 100ML VIAL As Ordered ONE
--- NOTE | 2020-05-20 12:09 | REPVR ---
PROCEDURE INFORMATION: Exam: US Duplex Left Upper Extremity Veins, Limited Exam date and time: 05/20/2020 10:44 AM Age: 69 years old Clinical indication: Pain; Arm, upper; Left; Prior surgery; Surgery date: 6+ months; Surgery type: Port at lt upper chest via subclav v x 3 years; Additional info: Port site lt arm, swelling, redness, pain TECHNIQUE: Imaging protocol: Real-time Duplex ultrasound of the Left Upper Extremity with 2-D patricio scale, color Doppler flow and spectral waveform analysis with image documentation. Limited exam focused on the left upper extremity veins. COMPARISON: US DUPLEX EXT UPPER VEINS UNILATE 04/15/2020 2:51 PM FINDINGS: Left deep veins: Axillary and brachial veins are patent throughout without thrombus. Normal Doppler waveforms. Normal compressibility and/or augmentation response. Visualized subclavian vein is patent. There is again partially occlusive thrombus involving the internal jugular vein, mildly improved. Left superficial veins: Unremarkable. Visualized cephalic and basilic veins are patent without thrombus. Soft tissues: No significant fluid or edema is evident in the region of the site of the Port-A-Cath. IMPRESSION: 1. Partially occlusive deep venous thrombus involving the left internal jugular vein, mildly improved as compared with 04/15/20, and no longer involving the subclavian vein. 2. No significant fluid or edema evident in the region of Port-A-Cath site. Electronically signed by: Nitin Spann On 05/20/2020 12:09:49 PM
== END ==
LOC: M RAD 10:11
PROVIDERS: ATTEND Internal Medicine Medical Oncology
DX: M79.89 Other specified soft tissue disorders (principal); M79.605 Pain in left leg; C50.912 Malignant neoplasm of unspecified site of left female breast

== ENCOUNTER → 2020-05-21 | Outpatient (CLI) | payer MEDICARE | LOC: M LABSMTC 10:30 | PROVIDERS: ATTEND Anesthesiology | DX: Z03.818 Encounter for observation for suspected exposure to other biological agents ruled out (principal); Z11.59 Encounter for screening for other viral diseases | CPT/HCPCS: C9803; U0002 ==

== ENCOUNTER → 2020-05-21 | Outpatient (CLI) | payer MEDICARE ==
--- NOTE | 2020-05-28 17:27 | REP ---
CHEST X-RAY CLINICAL: Preoperative assessment. TECHNIQUE: PA and lateral. FINDINGS: Mediastinum and cardiac silhouette are within normal limits. Infusaport identified with tip in the SVC. Surgical clips noted in the left breast region. No acute pulmonary parenchymal consolidation, effusion, or pneumothorax. Skeletal structures are intact. IMPRESSION: No obvious acute cardiopulmonary process appreciated. MTDD
== END ==
LOC: M RAD 10:46
PROVIDERS: ATTEND Thoracic Surgery (Cardiothoracic Vascular Surgery)
DX: Z01.818 Encounter for other preprocedural examination (principal); T82.7XXA Infection and inflammatory reaction due to other cardiac and vascular devices, implants and grafts, initial encounter; Y83.1 Surgical operation with implant of artificial internal device as the cause of abnormal reaction of the patient, or of later complication, without mention of misadventure at the time of the procedure

== ENCOUNTER 2020-05-22 07:10 | Day surgery (SDC) | payer MEDICARE ==
[~2020-05-22] VITALS: Ht 152.4 cm; Wt 83.5 kg
[~2020-05-22 07:10] MED LIST changes: +LIDOCAINE 1% MDV 20ML VIAL SQ PRN
[2020-05-22] MEDS ORDERED: fentaNYL 100 MCG/2 ML INJECTION (J3010) As Ordered ONE (08:01)
[2020-05-22] MEDS ORDERED: MIDAZOLAM INJ 2MG/2ML VIAL (J2250 PER 1MG) As Ordered ONE (08:01)
[2020-05-22] MEDS ORDERED: LIDOCAINE 2% 100MG/5ML SDV (FOR ANES.) As Ordered ONE (08:20)
[2020-05-22] MEDS ORDERED: propofoL 200 MG/20 ML VIAL As Ordered ONE ×2 (08:20→09:23)
[2020-05-22] MEDS ORDERED: propofoL 500 MG/50 ML VIAL As Ordered ONE (08:22)
[2020-05-22] MEDS ORDERED: BUPIVACAINE LIPOSOME/PF 1.3% 20ML VIAL (13.3MG/ML)(EXPAREL)(C9290 PER1MG) As Ordered ONE (08:23)
[2020-05-22] MEDS ORDERED: ceFAZolin 2 GM/D5W 50 ML IV BAG (J0690 PER 500MG) As Ordered ONE (08:34)
[2020-05-22] MEDS ORDERED: MUPIROCIN 2% OINT 22 GM TUBE As Ordered ONE (08:37)
[2020-05-22] MEDS ORDERED: LR 1,000 ML IV ONE (08:45)
[2020-05-22] MEDS ORDERED: ceFAZolin SOD 2 GM in IV 1 EA IV ONE (08:45)
[2020-05-22] MEDS ORDERED: MUPIROCIN 2% OINT 22 GM TUBE TOP ONE (08:45)
[2020-05-22] MEDS ORDERED: ePHEDrine SULFATE 25 MG/5 ML(5MG/ML) SYRINGE As Ordered ONE (09:04)
[2020-05-22] MEDS ORDERED: ONDANSETRON 4MG/2ML VIAL As Ordered ONE (09:42)
[2020-05-22] MEDS ORDERED: PERCOCET 5MG/325MG TAB As Ordered ONE (10:07)
[2020-05-22] MEDS ORDERED: fentaNYL 100 MCG/2 ML INJECTION (J3010) IV PRN (10:30)
[2020-05-22] MEDS ORDERED: PERCOCET 5MG/325MG TAB PO PRN (10:30)
[2020-05-22] MEDS ORDERED: ONDANSETRON 4MG/2ML VIAL IV PRN (10:30)
[2020-05-22] MEDS ORDERED: LR 1,000 ML IV SCH (10:30)
[2020-05-22 14:00] VITALS: BP 112/57
--- NOTE | 2020-06-08 12:02 | RO ---
DATE OF OPERATION: 05/22/2020 PREOPERATIVE DIAGNOSIS: Infected Infusaport placed over 2 years ago. POSTOPERATIVE DIAGNOSIS: Infected Infusaport placed over 2 years ago. PROCEDURE: Removal of infested Infusaport. SURGEON: Dr. Antoine Garcia. GALLERY HOST: ANESTHESIA: DESCRIPTION OF PROCEDURE: Under satisfactory monitored anesthesia care (MAC) anesthesia, patient was prepped and draped in the usual sterile fashion. The wound was infiltrated with Exparel. Incision was made over the Infusaport such that the glistening capsule could be entered, and the Infusaport was exposed. A single suture was removed. The stent was found, and the catheter was pulled out in its entirety without difficulty. The glistening capsule and all surrounding tissues were then removed and sent for cultures and sensitivities. A wound vacuum-assisted closure (VAC) as then placed. Patient tolerated the procedure well and left the operating room in satisfactory condition to the recovery room. BERENICE
[2020-06-29] MEDS ORDERED: ELIQ5TAB PO (08:37)
== END 2020-05-22 16:30 | disposition home or self-care (01) ==
LOC: M SDC 07:10
PROVIDERS: ATTEND Thoracic Surgery (Cardiothoracic Vascular Surgery)
DX: T80.212A Local infection due to central venous catheter, initial encounter (principal); I10 Essential (primary) hypertension; K21.9 Gastro-esophageal reflux disease without esophagitis; K57.92 Diverticulitis of intestine, part unspecified, without perforation or abscess without bleeding; E03.9 Hypothyroidism, unspecified; Z85.3 Personal history of malignant neoplasm of breast; Z79.899 Other long term (current) drug therapy
CPT/HCPCS: 36590; 87070; 87075; 87077; 87186; 87205; C9290; J0690; J2250; J2405; J3010

== ENCOUNTER → 2020-09-29 | Outpatient (CLI) | payer MEDICARE ==
[~2020-09-29] MED LIST changes: +GASTROGRAFIN SOLUTION 30ML (Q9963) As Ordered ONE; +ISOVUE-370 76% 100ML VIAL As Ordered ONE; -LIDOCAINE 1% MDV 20ML VIAL SQ PRN; +MULT-90 PO
--- NOTE | 2020-09-29 11:42 | REP ---
INDICATION: METASTATIC BREAST CANCER. COMPARISON: Comparison is made with multiple prior CT studies of the neck including the most recent exam dated October 23, 2019, and June 07, 2019 as well as May 30, 2017 prior studies.. TECHNIQUE: Helical scanning is acquired after the intravenous injection of 100 mL of Isovue 370. 3 mm axial images are re-formatted. Coronal and sagittal MPR images are provided. FINDINGS: There is unfortunately recurrence left supraclavicular lymphadenopathy with a 1.5 x 1.7 x 1.6 cm heterogeneously enhancing left supraclavicular lymph node. there is a is smaller node inferior to this measuring only 0.5 cm in diameter. These are new. No other cervical lymphadenopathy is appreciated. The parotid and submandibular glands are normal and symmetric. Thyroid lobes are not seen consistent with either surgical absence or marked atrophy. IMPRESSION: There is suspicious recurrent left supraclavicular lymphadenopathy with a single 1.7 cm heterogeneously enhancing lymph node. Post treatment changes in the thyroid bed. No thyroid tissue seen. <Electronically signed by Adam Judd > 09/29/20 [id number]
--- NOTE | 2020-09-29 11:49 | REP ---
INDICATION: METASTATIC BREAST CANCER COMPARISON: Multiple examinations dating through 08/15/2018 TECHNIQUE: Axial contrast enhanced images from the thoracic inlet to the upper abdomen with coronal and sagittal reformations using 100 ml Isovue 370 intravenous contrast material. This CT examination was performed using the following dose reduction techniques: Automated exposure control, adjustment of mA and/or kv according to the patient's size, and use of iterative reconstruction technique. FINDINGS: The focal area of subpleural nodular consolidation with linear stranding along the anterior margin of the left upper lobe on the left breast remains stable through 2018 as do few scattered calcified granulomata. No acute consolidation, suspicious nodule or mass lesion appreciated. No pleural effusion. No adenopathy. Tracheobronchial tree is patent. Atherosclerotic changes to the thoracic aorta and coronary arteries again noted without aortic aneurysm, dissection or cardiomegaly. No pericardial effusion. Surrounding musculoskeletal structures demonstrate age-related changes without acute osseous abnormality. IMPRESSION: Stable chronic findings dating back through 2018. No acute mediastinal or pleuroparenchymal process. No evidence for metastatic disease. <Electronically signed by Yo Walton > 09/29/20 [id number]
--- NOTE | 2020-09-29 12:10 | REP ---
INDICATION: METASTATIC BREAST CANCER. COMPARISON: 05/19/2020, 10/23/2019 TECHNIQUE: Axial contrast-enhanced images from the lung bases to the pubic symphysis using oral and 100 cc Isovue 370 intravenous contrast material. Precontrast and delayed images of the abdomen obtained along with coronal and sagittal reformations. This CT examination was performed using the following dose reduction techniques: Automated exposure control, adjustment of mA and/or kv according to the patient's size, and the use of iterative reconstruction technique. FINDINGS: Liver, spleen, pancreas, gallbladder, bilateral adrenal glands and kidneys are normal. Stable incidental 1 cm left renal cyst again noted. A small hiatal hernia is identified at the gastroesophageal junction and few scattered sigmoid diverticula are noted. Small and large bowel are otherwise normal in appearance and without obstruction or acute inflammatory process. Pelvis demonstrates normal bladder and evidence for prior hysterectomy along with stable small fat containing left inguinal hernia. No ascites. No free air. No intraperitoneal or retroperitoneal adenopathy. Abdominal aorta and vasculature appear normal. Musculoskeletal structures are intact and without acute osseous abnormality. IMPRESSION: No acute abdominopelvic pathology appreciated. No evidence for metastatic disease. Stable benign nonacute findings as described above including small left renal cyst, small hiatal hernia, diverticulosis and fat containing left inguinal hernia. <Electronically signed by Yo Walton > 09/29/20 [id number]
== END ==
LOC: M RAD 09:11
PROVIDERS: ATTEND Internal Medicine Medical Oncology
DX: C50.919 Malignant neoplasm of unspecified site of unspecified female breast (principal); R59.9 Enlarged lymph nodes, unspecified; R91.8 Other nonspecific abnormal finding of lung field; N28.1 Cyst of kidney, acquired; K44.9 Diaphragmatic hernia without obstruction or gangrene
CPT/HCPCS: 70491; 71260; 74177; Q9963; Q9967

== ENCOUNTER → 2020-10-28 | Outpatient (CLI) | payer MEDICARE ==
[~2020-10-28] MED LIST changes: -GASTROGRAFIN SOLUTION 30ML (Q9963) As Ordered ONE; -ISOVUE-370 76% 100ML VIAL As Ordered ONE
--- NOTE | 2020-10-28 13:51 | REP ---
INDICATION: PAIN, SWELLING LT ARM COMPARISON: None. None TECHNIQUE: Merritt scale and color Doppler evaluation left upper extremity using linear high frequency transducer. FINDINGS: Ultrasound examination of the left upper extremity including jugular, subclavian, axillary, brachial, basilic, and cephalic veins demonstrate normal venous flow characteristics without evidence for deep venous thrombosis. IMPRESSION: No evidence for deep venous thrombosis. <Electronically signed by Yo Walton > 10/28/20 [id number]
--- NOTE | 2020-10-28 13:55 | REP ---
INDICATION: PAIN, SWELLING LT ARM. COMPARISON: None. TECHNIQUE: Real-time sonographic evaluation of left neck soft tissues performed. FINDINGS: At the site of the palpable lump a heterogeneous hypoechoic nodule is seen which measures 1.7 x 1.7 x 1.4 cm. This could represent a pathologic lymph node. IMPRESSION: Hypoechoic nodule left neck soft tissues 1.7 cm in diameter. Recommend ultrasound-guided biopsy. <Electronically signed by Vu Merritt > 10/28/20 [id number]
== END ==
LOC: M RAD 13:03
PROVIDERS: ATTEND Internal Medicine Medical Oncology
DX: R22.32 Localized swelling, mass and lump, left upper limb (principal); R22.1 Localized swelling, mass and lump, neck; M79.602 Pain in left arm

== ENCOUNTER → 2020-11-11 | Outpatient (REF) | payer MEDICARE ==
[~2020-11-11] MED LIST changes: +SERT25TA85 PO
[2020-11-11 11:56] LABS: CHOLESTEROL RISK RATIO 3.578 (<5); FREE T4 1.22 NG/DL (0.76-1.46); THYROID STIMULATING HORMONE 1.04 uIU/ML (0.358-3.740)
== END ==
LOC: M LAB REF 09:59
PROVIDERS: ATTEND Nurse Practitioner Family
DX: I10 Essential (primary) hypertension (principal)

== ENCOUNTER → 2021-01-26 | Outpatient (CLI) | payer MEDICARE ==
[~2021-01-26] MED LIST changes: +GASTROGRAFIN SOLUTION 30ML (Q9963) As Ordered ONE; +ISOVUE-370 76% 100ML VIAL As Ordered ONE
--- NOTE | 2021-01-26 14:26 | REP ---
INDICATION: MET BREAST CA. COMPARISON: Comparison is prior made with prior CT studies dated September 29, 2020, October 23, 2019, and August 15, 2018.. TECHNIQUE: Helical scanning is acquired following the intravenous injection of 100 mL of Isovue 370. 3 mm axial images are reformatted. Coronal and sagittal MPR images are provided. FINDINGS: The recently identified suspicious left supraclavicular lymph node has decreased dramatically in size, from 1.7 cm previously to 0.9 cm in greatest diameter today. This still show slightly irregular borders and peripheral enhancement. No other abnormal supraclavicular lymph node is seen on either side. There is no other suprahyoid or infrahyoid adenopathy on either side. Submandibular and parotid glands are normal and symmetric. Thyroid lobes are quite small. No vascular abnormality is seen. Bone window settings show no blastic or lytic destructive lesion. There are mild degenerative spondylosis changes. The visualized paranasal sinuses are clear. No intraorbital abnormality. IMPRESSION: Significant improvement since the most recent prior study in the recently identified left supraclavicular lymph node. Now 0.9 cm in greatest diameter. No new adenopathy. <Electronically signed by Adam Judd > 01/26/21 [id number]
--- NOTE | 2021-01-26 14:45 | REP ---
INDICATION: MET BREAST CA. COMPARISON: MULTIPLE THE LATEST 09/29/2020 TECHNIQUE: STANDARD HELICAL TECHNIQUE AFTER THE INTRAVENOUS ADMINISTRATION OF 100 CC ISOVUE 370 AND ORAL BOWEL PREPARATORY CONTRAST ADMINISTRATION FINDINGS: The liver and spleen are unchanged. No enhancing hepatic masses have developed. The gallbladder, pancreas, adrenal glands, and kidneys are unchanged. The abdominal aorta and para-aortic regions are unchanged. The bowel loops and the mesenteries are again seen to be within normal limits. There is no free fluid or free air. No mass or adenopathy has developed. Bone window technique throughout the examination shows no significant change in appearance of the osseous structures. IMPRESSION: There has been no significant change. There is no evidence of acute disease. <Electronically signed by Deni Mejia > 01/26/21 [id number]
--- NOTE | 2021-01-26 14:50 | REP ---
INDICATION: MET BREAST CA. COMPARISON: 09/29/2020. TECHNIQUE: CT chest performed following the intravenous administration of 100 cc of Isovue 370. Sagittal and coronal reconstruction images are performed. FINDINGS: Lungs: There is calcified granuloma again seen in the anterior right upper lobe and another in the left lower lobe. Scattered areas of fibrotic scarring are stable bilaterally, including a focal area of pleuroparenchymal fibrosis anteriorly in the left upper lobe. Mediastinum: No adenopathy. Calcified lymph node is seen in the subcarinal region. Priyanka: No adenopathy. There are calcified left hilar lymph nodes. Axilla: No adenopathy. There are multiple metallic clips in the left axillary region. There are post treatment changes in the left breast. Pleura: No effusion. Heart: Not enlarged. Thoracic aorta: No aneurysm or dissection. Upper abdominal structures: There is a small hiatal hernia. Visualized osseous structures: There are degenerative changes of the spine without compression deformity.. IMPRESSION: Stable chronic findings. No new suspicious adenopathy, mass or pulmonary nodule. <Electronically signed by Vu Merritt > 01/26/21 [id number]
== END ==
LOC: M RAD 11:53
PROVIDERS: ATTEND Internal Medicine Medical Oncology
DX: R59.0 Localized enlarged lymph nodes (principal); C50.919 Malignant neoplasm of unspecified site of unspecified female breast
CPT/HCPCS: 70491; 71260; 74177; Q9963; Q9967

== ENCOUNTER → 2021-02-08 | Outpatient (CLI) | payer MEDICARE ==
[~2021-02-08] MED LIST changes: -GASTROGRAFIN SOLUTION 30ML (Q9963) As Ordered ONE; +ISOVUE-300 61% 50ML VIAL As Ordered ONE; -ISOVUE-370 76% 100ML VIAL As Ordered ONE; +LIDO1CRE42 TOP; -LIDO2.5C15 TOP; +LIDOCAINE 1% MDV 20ML VIAL As Ordered ONE; +MIDAZOLAM INJ 2MG/2ML VIAL (J2250 PER 1MG) As Ordered ONE; +[UNRECOGNIZED DRUG - CODE] IV; +ceFAZolin 1GM VIAL (J0690 PER 500MG) As Ordered ONE; +diphenhydrAMINE 50MG/ML VIAL (J1200) As Ordered ONE; +fentaNYL 100 MCG/2 ML INJECTION (J3010) As Ordered ONE
--- NOTE | 2021-02-08 13:20 | IRHP ---
[facility] IR Pre-Procedure H & P General Date of Service: February 08, 2021 Procedure: Same Day Surgery Interval History and Physical I have seen the patient and reviewed last H & P performed within 30 days. There is no significant interval change. History of Present Illness Chief Complaint The patient is a 70-year-old female admitted with a reason for visit of Hx Breast Ca. PRE-PROCEDURE DIAGNOSIS: Left-sided breast cancer HEART: Normal rate. LUNGS: Normal breathing at rest. ASA Classification ASA Classification: III-Severe systemic dis. Mallampati Score: II NPO: Yes Problems with prior sedation: No Obstructive Sleep Apnea: No Plan moderate sedation Allergies Coded Allergies: tetanus toxoid, adsorbed (Verified Allergy, Severe, Throat Swelling, 05/21/20) Home Medications Scheduled Apixaban (Eliquis), 5 MG PO ASDIRECTED Calcium Carbonate/Vitamin D3 (Calcium 600-Vit D3 200 Tablet), 1 TAB PO DAILY, (Reported) Ergocalciferol (Vitamin D2) (Vitamin D2), 50,000 UNITS PO Q4WKS, (Reported) Gemcitabine HCl in 0.9 % NaCl (Infugem 1,500 mg/150 ml Bag), 1,500 MG IV 1XWK, (Reported) Levothyroxine Sodium (Levothyroxine Sodium), 137 MCG PO DAILY, (Reported) Losartan/Hydrochlorothiazide (Losartan-Hctz 100-25 mg Tab), 1 TAB PO DAILY, (Reported) Metoprolol Succinate (Metoprolol Succinate), 50 MG PO DAILY, (Reported) Multivitamin (Multivitamin), 1 EACH PO DAILY, (Reported) Sertraline Hcl (Zoloft), 100 MG PO DAILY Spironolactone (Spironolactone), 12.5 MG PO DAILY, (Reported) VS, I&O, 24H, Fishbone Vital Signs/I&O Vital Signs Date Time Temp Pulse Resp B/P (MAP) Pulse Ox O2 Delivery O2 Flow Rate FiO2 02/08/21 12:59 97.9 68 20 94 Room Air Laboratory Data 24H LABS Laboratory Tests 2 02/08/21 15:00: Lab Scanned Report LAB OTHER GEOVANNA BUCIO MD February 08, 2021 13:20
[2021-02-08 15:30] VITALS: BP 99/57
--- NOTE | 2021-02-09 10:47 | IRPON ---
IR Postoperative Note Date Of Procedure: February 08, 2021 Time Of Procedure: 16:00 IR Postoperative Note IR Ultrasound and fluoroscopy guided port placement. IR Ultrasound of the neck. IR Moderate sedation. Clinical indication: Left-sided breast cancer. Physician: Dr. Wilkins. Procedure: The patient was advised of the benefits, risks, and alternatives of the procedure and informed consent was obtained. A time-out was performed with verification of the patient's name, MRN, site of procedure and type of procedure to be performed. The patient was positioned in the supine position on the angiographic table. The site was prepped and draped in the usual sterile fashion. Moderate sedation was performed by the physician including the presence of an independent trained RN who assisted and monitored the patient's level of consciousness and physiologic status. Following the administration of fentanyl and Versed , the physician spent 45 minutes of continuous face to face time with the patient. Ultrasound of the neck reveals a patent and compressible right internal jugular vein. A hospital personnel director radiograph reveals no gross abnormality. The neck and anterior chest wall were anesthetized with lidocaine. The right internal jugular vein was accessed using a microintroducer needle under ultrasound guidance, via a lateral approach. An 018 wire was advanced into the superior vena cava, the needle was removed and a microsheath was placed. An Amplatz wire was then passed into the inferior vena cava. An incision at the internal jugular vein access site and anterior chest wall were made using a scalpel. An incision was made at the anterior chest wall. A small pocket was created using a combination of blunt and sharp dissection. A tunneling device was then used to pass the catheter from the pocket to the neck puncture site. An 8- Chinese REMOTV Smart power port was then positioned in the pocket. The catheter was then measured and cut. The introducer sheath was exchanged for a peel-away sheath. The catheter was passed through the peel-away sheath into the internal jugular vein and the peel-away sheath was removed. The port tip was positioned at the cavoatrial junction. The port was then accessed with a Haque needle. The port flushes and aspirates well. The puncture site in the neck was closed. The chest wall incision was then closed with 2-0 Vicryl and 4-0 Monocryl. Glue and Steri- Strips were applied. A sterile dressing was then applied. The patient tolerated the procedure well and was returned to the PRU in stable condition. Estimated blood loss: <5 ml. Complications: None. Conclusion: 1. Successful placement of an 8-Chinese Angio dynamics Smart power port via the right internal jugular vein. The port is ready for immediate use. 2. Patient to follow up in IR clinic in 2 weeks. Thank you for this referral. GEOVANNA WILKINS MD February 09, 2021 10:47
== END ==
LOC: M IRPRO 12:01
PROVIDERS: ATTEND Internal Medicine Medical Oncology
DX: C50.912 Malignant neoplasm of unspecified site of left female breast (principal); C77.0 Secondary and unspecified malignant neoplasm of lymph nodes of head, face and neck
CPT/HCPCS: 36561; 99152; 99153; C1769; C1788; C1894; J0690; J1200; J1642; J1644; J2250; J3010

== ENCOUNTER → 2021-03-02 | Outpatient (POV) | payer MEDICARE ==
[~2021-03-02] VITALS: Ht 152.4 cm; Wt 81.8 kg
[~2021-03-02] MED LIST changes: -ISOVUE-300 61% 50ML VIAL As Ordered ONE; -LIDOCAINE 1% MDV 20ML VIAL As Ordered ONE; -MIDAZOLAM INJ 2MG/2ML VIAL (J2250 PER 1MG) As Ordered ONE; -ceFAZolin 1GM VIAL (J0690 PER 500MG) As Ordered ONE; -diphenhydrAMINE 50MG/ML VIAL (J1200) As Ordered ONE; -fentaNYL 100 MCG/2 ML INJECTION (J3010) As Ordered ONE
[2021-03-02 10:35] VITALS: BP 158/60
--- NOTE | 2021-03-03 13:04 | IRPN ---
[facility] IR Progress Note IR Progress Note DATE: Mar 02, 2021 FOLLOW-UP: Patient is status post port placement. Patient states she is doing well. No fevers, chills, pain at site or discharge from site. Port is being used without issues. ON EXAMINATION: Port site appears to be healing well. No redness, swelling or discharge. IMPRESSION: Doing well status post port placement. No further follow-up scheduled unless initiated by patient and/or referring provider. Thank you for this referral Allergies Coded Allergies: tetanus toxoid, adsorbed (Verified Allergy, Severe, Throat Swelling, 05/21/20) VS,Fishbone, I+O VS, Fishbone, I+O Vital Signs Date Time Temp Pulse Resp B/P (MAP) Pulse Ox O2 Delivery O2 Flow Rate FiO2 03/02/21 10:35 96.7 65 18 158/60 (92) 98 Room Air GEOVANNA BUCIO MD Mar 03, 2021 13:04
== END ==
LOC: M IRPOV 10:14
PROVIDERS: ATTEND Radiology Diagnostic Radiology
DX: Z45.2 Encounter for adjustment and management of vascular access device (principal); Z88.7 Allergy status to serum and vaccine

== ENCOUNTER → 2021-04-19 | Outpatient (CLI) | payer MEDICARE ==
[~2021-04-19] MED LIST changes: +ERGO500029 PO; +GASTROGRAFIN SOLUTION 30ML (Q9963) As Ordered ONE; +ISOVUE-370 76% 100ML VIAL As Ordered ONE; +OMEP40CA4 PO; -OMEP40CA97 PO; -VITA50005 PO
--- NOTE | 2021-04-19 11:29 | REPVR ---
PROCEDURE INFORMATION: Exam: CT Neck With Contrast Exam date and time: 04/19/2021 11:11 AM Age: 70 years old Clinical indication: Condition or disease; Other: Breast CA TECHNIQUE: Imaging protocol: Computed tomography images of the neck with contrast. Radiation optimization: All CT scans at this facility use at least one of these dose optimization techniques: automated exposure control; mA and/or kV adjustment per patient size (includes targeted exams where dose is matched to clinical indication); or iterative reconstruction. Contrast material: ISOVUE 370; Contrast volume: 100 ml; Contrast route: INTRAVENOUS (IV); COMPARISON: CT Neck with contrast 01/26/2021 1:44 PM FINDINGS: Brain: Visualized base of the brain is within normal limits for age. Orbital cavity: Prior operative intervention on both lenses. Nasopharynx: Unremarkable. Dental: Edentulous patient. Oropharynx: Unremarkable. No significant tonsillar enlargement. Hypopharynx: Unremarkable. Larynx: Unremarkable. Normal epiglottis. Retropharyngeal space: Unremarkable. Submandibular/Parotid glands: Normal. Glands are normal in size. Thyroid: Normal. No enlarged or calcified nodules. Lymph nodes: No confluent lymphadenopathy. Trachea: Visualized trachea is unremarkable. Lungs: The included lungs are grossly clear. Bones/joints: Degenerative changes along the spine without acute fracture. No lytic or blastic disease. Mild fatty stranding in the left anterior chest wall and supraclavicular region possibly post treatment related. Vasculature: No venous thrombus. Soft tissues: No dominant neck mass. Central access port partially visualized on the right. IMPRESSION: Likely post treatment changes on the left. No dominant mass or confluent lymphadenopathy. Electronically signed by: Margarito Blood On 04/19/2021 11:29:28 AM
--- NOTE | 2021-04-19 12:29 | REP ---
INDICATION: BREAST CA. COMPARISON: 01/26/2021, 09/29/2020, 05/19/2020 TECHNIQUE: Bolus 100 mL Isovue 370 scanning through the chest with coronal and sagittal reconstructions provided. FINDINGS: There is a noncalcified nodule in the right middle lobe on image 45 unchanged from all the prior studies and about 3 mm. Some dependent atelectatic changes are again seen. Calcified granuloma in the left lower lobe is unchanged. Pleuroparenchymal scarring in the left upper lobe is unchanged in size and contour with stranding towards the hilum. There is no mediastinal or hilar pathologic sized adenopathy. There are some calcified subcarinal nodes again seen. The aorta has calcifications at the arch and descending portion without aneurysm or dissection. The main, right and left pulmonary arteries in the mediastinum and proximal lobar arteries were all unremarkable without filling defects or vessel cut off. There are axillary surgical clips on the left. Few tiny calcified nodes in the left hilum, subcentimeter and unchanged. Postoperative and post radiation changes in the left breast are stable. No axillary adenopathy on the right. No supraclavicular mass. There is an indwelling right subclavian port catheter, tip in SVC. Heart size unchanged. Left atrium is prominent. No pericardial thickening or effusion. Trace hiatal hernia is noted. Sternum, manubrium, medial clavicles included, visualized scapulae, portions of humeral heads and ribs are without fracture or destructive lesion. Degenerative changes in the thoracic spine without acute compression deformity and all of this is stable. Please see the CT abdomen report this date for findings of the upper abdomen. IMPRESSION: 1. Stable chronic finding the CT with calcified granulomata, calcified hilar nodes on the left, mediastinal nodes and 1 small 3 mm noncalcified right upper lobe nodule. Scarring in the pleuroparenchymal area left upper lobe unchanged, no new or acute finding. <Electronically signed by Mando Feldman > 04/19/21 [id number]
--- NOTE | 2021-04-19 13:08 | REP ---
INDICATION: BREAST CA. COMPARISON: 01/26/2021, 09/29/2020 TECHNIQUE: The Gastrografin mixture per our bowel contrast protocol of by bolus 100 mL Isovue 370 scanning through the abdomen and pelvis and with delayed images through the abdomen. Coronal and sagittal reconstructions provided FINDINGS: CT abdomen: Small hiatal hernia noted. Stomach otherwise unremarkable. There is no hepatosplenomegaly, focal mass, biliary dilatation or adjacent ascites. Gallbladder without calcified stone or mass. Pancreas shows no mass or ductal dilatation nor any peripancreatic adenopathy or fluid. Adrenal glands normal. Kidneys show symmetric enhancement. No hydronephrosis or solid mass. Posterior simple cyst peripherally in the left kidney unchanged, about 1 cm no hydronephrosis, stone or solid mass. No hydroureter, ureteral dilatation or stone. Abdominal portions of the colon were grossly unremarkable. Oral contrast reaches distal left colon and sigmoid. No visible of colitis or diverticulitis. There a few scattered diverticula in the left colon and sigmoid. Small bowel loops are grossly unremarkable. I do not see any inflammatory changes about the cecum or pericecal adenopathy. Lung window review of all CT slices shows no perforation or free air. Bone windows show vacuum phenomena and disc space narrowing at L4-5 and grade 1 anterolisthesis of L3 on 4 from facet arthropathy there is no spondylolysis. No compression deformity or destructive lesions. Atherosclerotic calcifications of the aorta noted. Lower ribs intact. No periaortic, other retroperitoneal or mesenteric pathologic sized lymphadenopathy. CT pelvis: The bony sacrum, SI joints, pelvis and hips show some degenerative changes without destructive lesion or fracture. Bladder shows no wall thickening mass or stone. It is nearly empty. Uterus absent the vaginal cuff intact. Distal small bowel loops were unremarkable. No adnexal mass. No pelvic or inguinal adenopathy no inguinal or ventral hernia. IMPRESSION: 1. Stable examination. There is no evidence of bony metastatic disease or intra-abdominal intrapelvic mass/metastatic disease. No adenopathy ascites or other acute finding. <Electronically signed by Mando Feldman > 04/19/21 [id number]
== END ==
LOC: M RAD 09:06
PROVIDERS: ATTEND Internal Medicine Medical Oncology
DX: C50.919 Malignant neoplasm of unspecified site of unspecified female breast (principal)
CPT/HCPCS: 70491; 71260; 74177; Q9963; Q9967

== ENCOUNTER → 2021-05-26 | Outpatient (CLI) | payer MEDICARE ==
[~2021-05-26] MED LIST changes: +ENOX120I3 SC; +FEOS200T2 PO; -GASTROGRAFIN SOLUTION 30ML (Q9963) As Ordered ONE; -ISOVUE-370 76% 100ML VIAL As Ordered ONE; -PROC10TA4 PO; +PROC10TA5 PO; +WARF-23 PO; +ZOLO100T
== END ==
LOC: M RAD 12:45
PROVIDERS: ATTEND Internal Medicine Medical Oncology
DX: R22.1 Localized swelling, mass and lump, neck (principal); I82.C12 Acute embolism and thrombosis of left internal jugular vein

== ENCOUNTER → 2021-08-02 | Outpatient (CLI) | payer MEDICARE ==
[~2021-08-02] MED LIST changes: -FEOS200T2 PO; +GASTROGRAFIN SOLUTION 30ML (Q9963) As Ordered ONE; +ISOVUE-370 76% 100ML VIAL As Ordered ONE; +PROC10TA4 PO; -PROC10TA5 PO; -WARF-23 PO; -ZOLO100T
--- NOTE | 2021-08-02 16:07 | REPVR ---
PROCEDURE INFORMATION: Exam: CT Neck With Contrast Exam date and time: 08/02/2021 3:18 PM Age: 70 years old Clinical indication: Condition or disease; Cancer; Other: Breast; Additional info: Met breast CA TECHNIQUE: Imaging protocol: Computed tomography images of the neck with contrast. Radiation optimization: All CT scans at this facility use at least one of these dose optimization techniques: automated exposure control; mA and/or kV adjustment per patient size (includes targeted exams where dose is matched to clinical indication); or iterative reconstruction. Contrast material: ISOVUE 370; Contrast volume: 100 ml; Contrast route: INTRAVENOUS (IV); COMPARISON: 1. CT Neck with contrast 04/19/2021 11:[address] Chest with contrast 01/26/2021 1:44:39 PM FINDINGS: Tubes, catheters and devices: There is right mike catheter present. Orbital cavity: There have been bilateral intraocular lens replacements likely related to cataract surgery. Nasopharynx: Unremarkable. Oropharynx: Unremarkable. No significant tonsillar enlargement. Hypopharynx: Unremarkable. Larynx: Unremarkable. Normal epiglottis. Retropharyngeal space: Unremarkable. Submandibular/Parotid glands: Normal. Glands are normal in size. Thyroid: Normal. No enlarged or calcified nodules. Lymph nodes: Unremarkable. No lymphadenopathy. Trachea: Visualized trachea is unremarkable. Lungs: There is mild stranding along the left anterior chest wall as before which likely scarring. There is partially visualized pulmonary area opacity along the anterior chest wall in the upper lobe with partial air bronchograms, stable from comparison examination and therefore consistent with scarring. Bones/joints: There are degenerative changes in cervical spine with neural foraminal narrowing. No destructive or sclerotic suspicious bony lesions. Vasculature: Bilateral carotid and vertebral arteries are widely patent. Soft tissues: Unremarkable. No significant soft tissue swelling. IMPRESSION: No acute finding. No evidence of mass or lymphadenopathy. Electronically signed by: Anusha Carmichael On 08/02/2021 16:06:41 PM
--- NOTE | 2021-08-02 16:12 | REP ---
INDICATION: MET BREAST CA. COMPARISON: CT 04/19/2021, 01/26/2021, 09/29/2020. TECHNIQUE: Bolus 100 mL Isovue 370 scanning through the chest with coronal and sagittal reconstructions. FINDINGS: Stone Banker image shows a right jugular indwelling port. Axillary surgical clips on the left. There is a stable noncalcified nodule in the right middle lobe on image 53 present on all prior studies and consistent with a benign finding. Dependent atelectatic changes again noted posteriorly right greater than left. Left lower lobe calcified granuloma on image 66, unchanged. Peripheral pleural based scarring anterolaterally in the left upper lobe is again noted and stable in all of these priors. There is linear fibrotic change extending from this to the hilum. Coronal images show some elevation of the left hilum there is scarring and volume loss the left hemithorax all stable. Heart size unchanged there is some mild prominence of the left atrium. Coronary artery calcifications are seen. Aorta without aneurysm or dissection. No pericardial thickening or effusion. I see no pathologic sized mediastinal, hilar, axillary or supraclavicular adenopathy. The main, right and left pulmonary arteries in the mediastinum are without filling defects and their diameter is prominent suggesting some degree of pulmonary artery hypertension, likely on the basis of COPD. Calcified subcarinal, right hilar, left hilar nodes are again seen and unchanged. Small hiatal hernia again noted. Bone windows show no change from the previous CT nor any new wedge compression fractures. No destructive lesions in the spine, sternum, manubrium, ribs, clavicles or shoulders. There are advanced degenerative changes of the glenohumeral joints. The upper abdominal structures will be described in detail on the CT abdomen pelvis report this date. IMPRESSION: : 1. Stable chest CT with chronic findings including calcified granulomas, calcified hilar nodes and a 3 mm noncalcified right upper lobe nodule all unchanged. 2. Pleuroparenchymal scarring left upper lobe stable from all priors studies reviewed today. No new or acute finding. <Electronically signed by Mando Feldman > 08/02/21 [id number]
--- NOTE | 2021-08-02 16:30 | REP ---
INDICATION: MET BREAST CA. COMPARISON: CT 04/19/2021, 01/26/2021, 09/29/2020. TECHNIQUE: Oral Gastrografin 10 mL in 290 mL of flavored water for 2 doses per our bowel contrast protocol, followed by scanning through the abdomen and pelvis with coronal and sagittal reconstructions. Delayed images through the abdomen also provided. L FINDINGS: CT abdomen: Lung cedeno were described in detail on the CT chest report this date. There is a small hiatal hernia. Stomach is otherwise unremarkable. There is no hepatomegaly, hepatic mass or biliary dilatation. No upper abdominal ascites. Gallbladder shows no calcified stone or mass. Pancreas is unremarkable. Adrenal glands are normal. There is mild splenomegaly with measurements of 13.6 x 5 x 11.2 cm giving splenic index of 762 (normal less than 480. No discrete splenic lesion or adjacent ascites. Abdominal portion of the colon shows no sign of colitis, diverticulitis, stricture or mass. Small bowel loops in the abdomen were unremarkable. Tiny umbilical hernia of only small amount of omental fat without bowel herniation in the abdomen. Atherosclerotic calcifications of the aorta without aneurysm. No periaortic, other retroperitoneal or mesenteric pathologic sized adenopathy. No inflammatory change about the cecum no or pericecal adenopathy. Lung window review of all CT slices shows no perforation or abscess in the abdomen or pelvis. Bone windows show degenerative disc changes greatest at L4-5 with vacuum phenomenon and narrowing and a few mm of anterolisthesis of L3 on 4 due to facet arthropathy no compression deformity or destructive lesions and the visualized ribs are intact. CT pelvis: Pelvis, sacrum, SI joints and hips with some minor degenerative change but no destructive lesion or fracture. Kidneys, collecting systems, ureters and bladder show no acute finding there is no renal stone solid mass or hydronephrosis. Subcentimeter left renal cyst again seen. Bladder show no mass, wall thickening or stone. Diverticulosis distal left colon and sigmoid without diverticulitis, colitis, stricture or mass. Uterus absent the vaginal cuff intact. No pelvic mass. No inguinal or pelvic lymphadenopathy. IMPRESSION: 1. There is no CT evidence of bony metastatic disease, intra-abdominal or intrapelvic mass/metastatic disease. No adenopathy, ascites or other acute finding. Stable examination. <Electronically signed by Mando Feldman > 08/02/21 [id number]
== END ==
LOC: M RAD 13:06
PROVIDERS: ATTEND Internal Medicine Medical Oncology
DX: C50.919 Malignant neoplasm of unspecified site of unspecified female breast (principal)
CPT/HCPCS: 70491; 71260; 74177; Q9963; Q9967

== ENCOUNTER → 2021-09-01 | Outpatient (CLI) | payer MEDICARE ==
[~2021-09-01] MED LIST changes: +FEOS200T2 PO; -GASTROGRAFIN SOLUTION 30ML (Q9963) As Ordered ONE; -ISOVUE-370 76% 100ML VIAL As Ordered ONE; +ZOLO100T
[2021-09-01 15:46] LABS: HEMATOCRIT 35.5 % (36.0-47.0); HEMOGLOBIN 11.1 g/dl (12.0-15.5); MEAN CORPUSCULAR HEMOGLOBIN 29.5 pg (27.0-33.0); MEAN CORPUSCULAR HGB CONC 31.3 g/dl (32.0-36.5); MEAN CORPUSCULAR VOLUME 94.4 fl (80.0-96.0); RED BLOOD COUNT 3.76 10^6/uL (4.00-5.40); WHITE BLOOD COUNT 24.2 10^3/uL (4.0-10.0)
[2021-09-01 15:59] LABS: INR 0.9; PROTHROMBIN TIME 12.5 SECONDS (12.7-14.5)
[2021-09-01 16:00] LABS: PARTIAL THROMBOPLASTIN TIME 28.8 SECONDS (25.9-37.0)
[2021-09-01 16:20] LABS: ALBUMIN 3.8 GM/DL (3.2-5.2); ALT/SGPT 67 U/L (12-78); BILIRUBIN,TOTAL 0.3 MG/DL (0.2-1.0); BLOOD UREA NITROGEN 16 MG/DL (7-18); CARBON DIOXIDE LEVEL 30 MEQ/L (21-32); CHLORIDE LEVEL 104 MEQ/L (98-107); CREATININE FOR GFR 0.96 MG/DL (0.55-1.30); GLOMERULAR FILTRATION RATE > 60.0 (>39); GLUCOSE, FASTING 102 MG/DL (70-100); POTASSIUM SERUM 4.1 MEQ/L (3.5-5.1); SODIUM LEVEL 140 MEQ/L (136-145); TOTAL PROTEIN 7.1 GM/DL (6.4-8.2)
[2021-09-01 16:22] LABS: PLATELET COUNT, AUTOMATED 87 10^3/uL (150-450)
[2021-09-01 16:28] LABS: ANISOCYTOSIS 1+; ATYPICAL LYMPH 1 % (0-5); EOSINOPHILS 1 % (0-3); LYMPHOCYTES 12 % (16-44); MONOCYTES 3 % (0-5); NEUTROPHILS 51 % (28-66); PLATELET ESTIMATE DECREASED (NORMAL)
[2021-09-01 16:29] LABS: HYPOCHROMASIA 1+
== END ==
LOC: M PLALAB 12:34
PROVIDERS: ATTEND Nurse Practitioner Family
DX: I82.622 Acute embolism and thrombosis of deep veins of left upper extremity (principal)

== ENCOUNTER → 2021-09-06 | Outpatient (CLI) | payer MEDICARE ==
[2021-09-06 11:36] LABS: INR 1.19; PROTHROMBIN TIME 15.5 SECONDS (12.7-14.5)
== END ==
LOC: M PLALAB 08:50
PROVIDERS: ATTEND Nurse Practitioner Family
DX: I82.C12 Acute embolism and thrombosis of left internal jugular vein (principal); Z79.01 Long term (current) use of anticoagulants

== ENCOUNTER → 2021-09-09 | Outpatient (CLI) | payer MEDICARE ==
[2021-09-09 13:39] LABS: INR 1.9; PROTHROMBIN TIME 22.2 SECONDS (12.7-14.5)
== END ==
LOC: M PLALAB 09:20
PROVIDERS: ATTEND Nurse Practitioner Family
DX: I82.C12 Acute embolism and thrombosis of left internal jugular vein (principal)

== ENCOUNTER → 2021-09-13 | Outpatient (CLI) | payer MEDICARE ==
[~2021-09-13] MED LIST changes: +LEVO125T4 PO; -PROC10TA4 PO; +PROC10TA5 PO; +WARF-23 PO
[2021-09-13 14:33] LABS: INR 3.13; PROTHROMBIN TIME 32.5 SECONDS (12.7-14.5)
== END ==
LOC: M PLALAB 10:01
PROVIDERS: ATTEND Nurse Practitioner Family
DX: I82.C12 Acute embolism and thrombosis of left internal jugular vein (principal)

== ENCOUNTER → 2021-09-16 | Outpatient (CLI) | payer MEDICARE ==
[2021-09-16 10:29] LABS: INR 4.05; PROTHROMBIN TIME 39.6 SECONDS (12.7-14.5)
[2021-09-16 10:30] LABS: PARTIAL THROMBOPLASTIN TIME 52.7 SECONDS (25.9-37.0)
== END ==
LOC: M PLALAB 08:39
PROVIDERS: ATTEND Nurse Practitioner Family
DX: I82.C12 Acute embolism and thrombosis of left internal jugular vein (principal)

== ENCOUNTER → 2021-09-21 | Outpatient (CLI) | payer MEDICARE ==
[2021-09-21 10:23] LABS: INR 1.39; PROTHROMBIN TIME 17.5 SECONDS (12.7-14.5)
== END ==
LOC: M PLALAB 08:05
PROVIDERS: ATTEND Nurse Practitioner Family
DX: I82.C12 Acute embolism and thrombosis of left internal jugular vein (principal)

== ENCOUNTER → 2021-10-13 | Outpatient (REF) | payer MEDICARE ==
[~2021-10-13] MED LIST changes: -LEVO125T4 PO
[2021-10-13 14:33] LABS: CHOLESTEROL RISK RATIO 4.204 (<5); FREE T4 1.3 NG/DL (0.76-1.46); THYROID STIMULATING HORMONE 0.277 uIU/ML (0.358-3.740)
== END ==
LOC: M LAB REF 13:21
PROVIDERS: ATTEND Nurse Practitioner Family
DX: I10 Essential (primary) hypertension (principal); E78.2 Mixed hyperlipidemia; E03.9 Hypothyroidism, unspecified

== ENCOUNTER → 2021-10-15 | Outpatient (CLI) | payer MEDICARE ==
[2021-10-15 13:44] LABS: PROTHROMBIN TIME 23.1 SECONDS (12.7-14.5)
== END ==
LOC: M PLALAB 11:10
PROVIDERS: ATTEND Nurse Practitioner Family
DX: I82.C12 Acute embolism and thrombosis of left internal jugular vein (principal)

== ENCOUNTER → 2021-11-01 | Outpatient (CLI) | payer MEDICARE ==
[2021-11-01 13:53] LABS: INR 1.83; PROTHROMBIN TIME 21.6 SECONDS (12.7-14.5)
== END ==
LOC: M PLALAB 11:22
PROVIDERS: ATTEND Nurse Practitioner Family
DX: I82.C12 Acute embolism and thrombosis of left internal jugular vein (principal)

== ENCOUNTER → 2021-11-16 | Outpatient (CLI) | payer MEDICARE, BC ==
[~2021-11-16] MED LIST changes: +LEVO125T4 PO
[2021-11-16 14:19] LABS: INR 1.62; PROTHROMBIN TIME 19.7 SECONDS (12.7-14.5)
== END ==
LOC: M PLALAB 10:24
PROVIDERS: ATTEND Nurse Practitioner Family
DX: I82.C12 Acute embolism and thrombosis of left internal jugular vein (principal)

== ENCOUNTER → 2021-11-29 | Outpatient (CLI) | payer BC, MEDICARE ==
[~2021-11-29] MED LIST changes: +GASTROGRAFIN SOLUTION 30ML (Q9963) As Ordered ONE; +ISOVUE-370 76% 100ML VIAL As Ordered ONE
== END ==
LOC: M RAD 10:18
PROVIDERS: ATTEND Internal Medicine Medical Oncology
DX: R91.8 Other nonspecific abnormal finding of lung field (principal); C50.919 Malignant neoplasm of unspecified site of unspecified female breast
CPT/HCPCS: 70491; 71260; 74177; Q9963; Q9967

== ENCOUNTER → 2021-11-30 | Outpatient (CLI) | payer MEDICARE, BC ==
[~2021-11-30] MED LIST changes: -GASTROGRAFIN SOLUTION 30ML (Q9963) As Ordered ONE; -ISOVUE-370 76% 100ML VIAL As Ordered ONE
[2021-11-30 13:59] LABS: INR 1.53; PROTHROMBIN TIME 18.8 SECONDS (12.7-14.5)
== END ==
LOC: M PLALAB 11:42
PROVIDERS: ATTEND Nurse Practitioner Family
DX: I82.C12 Acute embolism and thrombosis of left internal jugular vein (principal)

== ENCOUNTER → 2021-12-07 | Outpatient (CLI) | payer MEDICARE, BC ==
[2021-12-07 13:23] LABS: INR 2.22
== END ==
LOC: M PLALAB 11:19
PROVIDERS: ATTEND Nurse Practitioner Family
DX: Z79.01 Long term (current) use of anticoagulants (principal); I82.C12 Acute embolism and thrombosis of left internal jugular vein

== ENCOUNTER → 2021-12-23 | Outpatient (CLI) | payer MEDICARE, BC ==
[2021-12-23 14:42] LABS: INR 1.99
== END ==
LOC: M PLALAB 09:18
PROVIDERS: ATTEND Nurse Practitioner Family
DX: I82.C12 Acute embolism and thrombosis of left internal jugular vein (principal); Z79.01 Long term (current) use of anticoagulants

== ENCOUNTER → 2022-01-06 | Outpatient (CLI) | payer MEDICARE, BC ==
[2022-01-06 13:40] LABS: INR 2.04; PROTHROMBIN TIME 23.4 SECONDS (12.7-14.5)
== END ==
LOC: M PLALAB 09:44
PROVIDERS: ATTEND Nurse Practitioner Family
DX: I82.C12 Acute embolism and thrombosis of left internal jugular vein (principal)

== ENCOUNTER → 2022-01-13 | Outpatient (CLI) | payer MEDICARE, BC | LOC: M WHC 12:21 | PROVIDERS: ATTEND Internal Medicine Hematology & Oncology | DX: E04.1 Nontoxic single thyroid nodule (principal) ==

== ENCOUNTER → 2022-01-20 | Outpatient (CLI) | payer MEDICARE, BC ==
[~2022-01-20] MED LIST changes: +ISOVUE-370 76% 100ML VIAL As Ordered ONE
== END ==
LOC: M RAD 14:53
PROVIDERS: ATTEND Internal Medicine Medical Oncology
DX: C50.919 Malignant neoplasm of unspecified site of unspecified female breast (principal); I89.0 Lymphedema, not elsewhere classified
CPT/HCPCS: 70491; Q9967

== ENCOUNTER → 2022-01-24 | Outpatient (CLI) | payer MEDICARE, BC ==
[~2022-01-24] MED LIST changes: -ISOVUE-370 76% 100ML VIAL As Ordered ONE
[2022-01-24 14:59] LABS: PROTHROMBIN TIME 23.1 SECONDS (12.7-14.5)
== END ==
LOC: M PLALAB 09:57
PROVIDERS: ATTEND Nurse Practitioner Family
DX: I82.C12 Acute embolism and thrombosis of left internal jugular vein (principal)

== ENCOUNTER → 2022-02-01 | Outpatient (CLI) | payer MEDICARE, BC | LOC: M RAD 10:05 | PROVIDERS: ATTEND Internal Medicine Medical Oncology | DX: M19.011 Primary osteoarthritis, right shoulder (principal); M19.012 Primary osteoarthritis, left shoulder; M16.0 Bilateral primary osteoarthritis of hip; M17.0 Bilateral primary osteoarthritis of knee; M19.021 Primary osteoarthritis, right elbow; M19.022 Primary osteoarthritis, left elbow; M19.031 Primary osteoarthritis, right wrist; M19.032 Primary osteoarthritis, left wrist; M19.041 Primary osteoarthritis, right hand; M19.042 Primary osteoarthritis, left hand; M19.071 Primary osteoarthritis, right ankle and foot; M19.072 Primary osteoarthritis, left ankle and foot; M25.519 Pain in unspecified shoulder; M25.559 Pain in unspecified hip; C50.019 Malignant neoplasm of nipple and areola, unspecified female breast | CPT/HCPCS: 78306; A9503 ==

== ENCOUNTER → 2022-02-11 | Outpatient (CLI) | payer MEDICARE, BC ==
[2022-02-11 13:27] LABS: INR 1.81; PROTHROMBIN TIME 21.4 SECONDS (12.7-14.5)
== END ==
LOC: M PLALAB 10:12
PROVIDERS: ATTEND Nurse Practitioner Family
DX: I82.C12 Acute embolism and thrombosis of left internal jugular vein (principal)

== ENCOUNTER → 2022-02-23 | Outpatient (REF) | payer MEDICARE, BC ==
[2022-02-23 09:25] LABS: INR 1.18; PROTHROMBIN TIME 15.4 SECONDS (12.7-14.5)
== END ==
LOC: M LAB REF 08:51
PROVIDERS: ATTEND Nurse Practitioner Family
DX: I82.C12 Acute embolism and thrombosis of left internal jugular vein (principal)

== ENCOUNTER → 2022-03-09 | Outpatient (CLI) | payer MEDICARE, BC ==
[2022-03-09 13:30] LABS: INR 1.34
== END ==
LOC: M PLALAB 11:05
PROVIDERS: ATTEND Nurse Practitioner Family
DX: I82.C12 Acute embolism and thrombosis of left internal jugular vein (principal)

== ENCOUNTER → 2022-03-21 | Outpatient (CLI) | payer MEDICARE, BC | LOC: M PLALAB 12:02 | PROVIDERS: ATTEND Nurse Practitioner Family | DX: Z79.01 Long term (current) use of anticoagulants (principal) ==

== ENCOUNTER → 2022-03-25 | Outpatient (CLI) | payer MEDICARE, BC ==
[~2022-03-25] MED LIST changes: +GASTROGRAFIN SOLUTION 30ML (Q9963) As Ordered ONE; +ISOVUE-370 76% 100ML VIAL As Ordered ONE
== END ==
LOC: M RAD 10:56
PROVIDERS: ATTEND Internal Medicine Medical Oncology
DX: C50.912 Malignant neoplasm of unspecified site of left female breast (principal); I82.C12 Acute embolism and thrombosis of left internal jugular vein; K44.9 Diaphragmatic hernia without obstruction or gangrene; R91.1 Solitary pulmonary nodule; N28.1 Cyst of kidney, acquired
CPT/HCPCS: 36415; 70491; 71260; 74177; 85610; Q9963; Q9967

== ENCOUNTER → 2022-03-25 | Outpatient (CLI) | payer MEDICARE, BC ==
[~2022-03-25] MED LIST changes: -GASTROGRAFIN SOLUTION 30ML (Q9963) As Ordered ONE; -ISOVUE-370 76% 100ML VIAL As Ordered ONE
[2022-03-25 10:56] LABS: INR 1.42; PROTHROMBIN TIME 17.8 SECONDS (12.7-14.5)
== END ==
LOC: M PLALAB 09:14
PROVIDERS: ATTEND Nurse Practitioner Family
DX: I82.C12 Acute embolism and thrombosis of left internal jugular vein (principal)

== ENCOUNTER → 2022-04-20 | Outpatient (CLI) | payer MEDICARE, BC ==
[2022-04-20 15:31] LABS: INR 3.41; PROTHROMBIN TIME 34.7 SECONDS (12.7-14.5)
== END ==
LOC: M PLALAB 14:26
PROVIDERS: ATTEND Nurse Practitioner Family
DX: I82.C12 Acute embolism and thrombosis of left internal jugular vein (principal)

== ENCOUNTER → 2022-04-27 | Outpatient (REF) | payer MEDICARE, BC ==
[2022-04-27 11:18] LABS: INR 1.67; PROTHROMBIN TIME 20.1 SECONDS (12.7-14.5)
== END ==
LOC: M LAB REF 09:54
PROVIDERS: ATTEND Nurse Practitioner Family
DX: I82.C12 Acute embolism and thrombosis of left internal jugular vein (principal)

== ENCOUNTER → 2022-05-11 | Outpatient (REF) | payer MEDICARE, BC ==
[2022-05-11 10:45] LABS: INR 1.58; PROTHROMBIN TIME 19.2 SECONDS (12.7-14.5)
== END ==
LOC: M LAB REF 09:57
PROVIDERS: ATTEND Nurse Practitioner Family
DX: I82.C12 Acute embolism and thrombosis of left internal jugular vein (principal)

== ENCOUNTER → 2022-05-26 | Outpatient (CLI) | payer MEDICARE, BC ==
[2022-05-26 13:49] LABS: INR 2.04; PROTHROMBIN TIME 23.4 SECONDS (12.7-14.5)
== END ==
LOC: M PLALAB 10:15
PROVIDERS: ATTEND Nurse Practitioner Family
DX: I82.C12 Acute embolism and thrombosis of left internal jugular vein (principal)

== ENCOUNTER → 2022-06-10 | Outpatient (CLI) | payer MEDICARE, BC ==
[2022-06-10 14:40] LABS: INR 2.34
== END ==
LOC: M PLALAB 09:37
PROVIDERS: ATTEND Nurse Practitioner Family
DX: I82.C12 Acute embolism and thrombosis of left internal jugular vein (principal)

== ENCOUNTER → 2022-07-11 | Outpatient (CLI) | payer MEDICARE, BC ==
[2022-07-11 13:43] LABS: INR 1.36
== END ==
LOC: M PLALAB 10:12
PROVIDERS: ATTEND Nurse Practitioner Family
DX: C12 Malignant neoplasm of pyriform sinus (principal)

== ENCOUNTER → 2022-07-25 | Outpatient (CLI) | payer MEDICARE, BC ==
[~2022-07-25] MED LIST changes: +CLOT1CRE71 TOP
[2022-07-25 14:48] LABS: INR 1.41; PROTHROMBIN TIME 17.5 SECONDS (12.5-14.5)
== END ==
LOC: M PLALAB 10:13
PROVIDERS: ATTEND Nurse Practitioner Family
DX: I82.C12 Acute embolism and thrombosis of left internal jugular vein (principal)

== ENCOUNTER → 2022-08-09 | Outpatient (CLI) | payer MEDICARE, BC | LOC: M RAD 13:16 | PROVIDERS: ATTEND Internal Medicine Medical Oncology | DX: C50.919 Malignant neoplasm of unspecified site of unspecified female breast (principal) ==

== ENCOUNTER → 2022-08-09 | Outpatient (CLI) | payer MEDICARE, BC ==
[2022-08-09 14:10] LABS: INR 2.18; PROTHROMBIN TIME 24.6 SECONDS (12.5-14.5)
== END ==
LOC: M PLALAB 11:38
PROVIDERS: ATTEND Nurse Practitioner Family
DX: I82.C12 Acute embolism and thrombosis of left internal jugular vein (principal)

== ENCOUNTER → 2022-08-22 | Outpatient (CLI) | payer MEDICARE, BC ==
[2022-08-22 14:42] LABS: INR 1.4; PROTHROMBIN TIME 17.4 SECONDS (12.5-14.5)
== END ==
LOC: M PLALAB 09:14
PROVIDERS: ATTEND Nurse Practitioner Family
DX: I82.C12 Acute embolism and thrombosis of left internal jugular vein (principal)

== ENCOUNTER → 2022-09-05 | Outpatient (CLI) | payer MEDICARE, BC ==
[2022-09-05 13:27] LABS: INR 1.32; PROTHROMBIN TIME 16.6 SECONDS (12.5-14.5)
== END ==
LOC: M PLALAB 11:28
PROVIDERS: ATTEND Nurse Practitioner Family
DX: I82.C12 Acute embolism and thrombosis of left internal jugular vein (principal); Z79.01 Long term (current) use of anticoagulants

== ENCOUNTER → 2022-09-29 | Outpatient (CLI) | payer MEDICARE, BC ==
[2022-09-29 14:18] LABS: INR 1.88; PROTHROMBIN TIME 21.9 SECONDS (12.5-14.5)
== END ==
LOC: M PLALAB 10:56
PROVIDERS: ATTEND Nurse Practitioner Family
DX: I82.C12 Acute embolism and thrombosis of left internal jugular vein (principal)

== ENCOUNTER → 2022-10-10 | Outpatient (CLI) | payer MEDICARE, BC ==
[~2022-10-10] MED LIST changes: +EMEN150S IV; +[UNRECOGNIZED DRUG - CODE] IV
[2022-10-10 13:42] LABS: INR 2.46; PROTHROMBIN TIME 27.1 SECONDS (12.5-14.5)
== END ==
LOC: M PLALAB 10:23
PROVIDERS: ATTEND Nurse Practitioner Family
DX: I82.C12 Acute embolism and thrombosis of left internal jugular vein (principal)

== ENCOUNTER → 2022-10-18 | Outpatient (CLI) | payer MEDICARE, BC ==
[2022-10-18 11:17] LABS: INR 1.58; PROTHROMBIN TIME 19.2 SECONDS (12.5-14.5)
[2022-10-18 11:38] LABS: THYROID STIMULATING HORMONE 3.184 uIU/ML (0.55-4.78)
[2022-10-18 11:39] LABS: TOTAL 25(OH) VITAMIN D 40.9 NG/ML (20.0-100.0)
[2022-10-18 11:41] LABS: FREE T4 1.35 NG/DL (0.89-1.76)
[2022-10-18 11:43] LABS: ALBUMIN 3.9 G/DL (3.2-5.2); ALKALINE PHOSPHATASE 175 U/L (46-116); ALT/SGPT 13 U/L (7.0-40); AST/SGOT 13 U/L (<34); BILIRUBIN,TOTAL 0.3 MG/DL (0.3-1.2); BLOOD UREA NITROGEN 15 MG/DL (9-23); CALCIUM LEVEL 9.2 MG/DL (8.3-10.6); CARBON DIOXIDE LEVEL 28 MMOL/L (20-31); CHLORIDE LEVEL 104 MMOL/L (98-107); CHOLESTEROL LEVEL 194 MG/DL (<200); CREATININE FOR GFR 0.85 MG/DL (0.55-1.30); GLOMERULAR FILTRATION RATE > 60.0 (>39); GLUCOSE, FASTING 96 MG/DL (74-106); HDL CHOLESTEROL 62.4 MG/DL (>40); LDL CHOLESTEROL 90.2 MG/DL (<100); NON-HDL-C 132 MG/DL; POTASSIUM SERUM 4.3 MMOL/L (3.5-5.1); SODIUM LEVEL 139 MMOL/L (136-145); TOTAL PROTEIN 6.5 G/DL (5.7-8.2); TRIGLYCERIDES LEVEL 207 MG/DL (<150)
== END ==
LOC: M PLALAB 08:59
PROVIDERS: ATTEND Nurse Practitioner Family
DX: I82.C12 Acute embolism and thrombosis of left internal jugular vein (principal); Z79.01 Long term (current) use of anticoagulants; I10 Essential (primary) hypertension; E78.2 Mixed hyperlipidemia; E55.9 Vitamin D deficiency, unspecified; E03.9 Hypothyroidism, unspecified

== ENCOUNTER → 2022-10-20 | Outpatient (CLI) | payer MEDICARE, BC | LOC: M LABSMTC 10:16 | PROVIDERS: ATTEND Anesthesiology | DX: Z01.818 Encounter for other preprocedural examination (principal) ==

== ENCOUNTER 2022-10-24 10:02 | Day surgery (SDC) | payer MEDICARE, BC ==
[~2022-10-24] VITALS: Ht 152.4 cm; Wt 82.3 kg
[~2022-10-24 10:02] MED LIST changes: +NS 1,000 ML IV ONE
[2022-10-24] MEDS ORDERED: fentaNYL 100 MCG/2 ML INJECTION As Ordered ONE (12:03)
[2022-10-24] MEDS ORDERED: propofoL 200 MG/20 ML VIAL As Ordered ONE (12:03)
[2022-10-24] MEDS ORDERED: LIDOCAINE 2% 100MG/5ML SDV (FOR ANES.) As Ordered ONE (12:03)
[2022-10-24 12:55] VITALS: BP 145/74
[2022-10-26] MEDS ORDERED: ZOLO100T PO (11:04)
== END 2022-10-24 13:10 | disposition home or self-care (01) ==
LOC: M OPP 10:02
PROVIDERS: ATTEND Internal Medicine Gastroenterology
DX: Z12.11 Encounter for screening for malignant neoplasm of colon (principal); Z86.010 Personal history of colon polyps; Z80.0 Family history of malignant neoplasm of digestive organs; K63.5 Polyp of colon; K57.30 Diverticulosis of large intestine without perforation or abscess without bleeding; K64.8 Other hemorrhoids; K44.9 Diaphragmatic hernia without obstruction or gangrene; D50.9 Iron deficiency anemia, unspecified; Z79.1 Long term (current) use of non-steroidal anti-inflammatories (NSAID); Z79.899 Other long term (current) drug therapy; Z79.891 Long term (current) use of opiate analgesic; I10 Essential (primary) hypertension; I48.91 Unspecified atrial fibrillation; E05.90 Thyrotoxicosis, unspecified without thyrotoxic crisis or storm; Z92.3 Personal history of irradiation; Z92.21 Personal history of antineoplastic chemotherapy; Z85.3 Personal history of malignant neoplasm of breast
CPT/HCPCS: 43235; 45385; 88305; J3010

== ENCOUNTER → 2022-11-04 | Outpatient (CLI) | payer MEDICARE, BC ==
[~2022-11-04] MED LIST changes: -NS 1,000 ML IV ONE
[2022-11-04 14:24] LABS: INR 2.51; PROTHROMBIN TIME 27.5 SECONDS (12.5-14.5)
== END ==
LOC: M PLALAB 10:30
PROVIDERS: ATTEND Nurse Practitioner Family
DX: I82.C12 Acute embolism and thrombosis of left internal jugular vein (principal)

== ENCOUNTER → 2022-12-07 | Outpatient (CLI) | payer MEDICARE, BC ==
[2022-12-07 17:33] LABS: PROTHROMBIN TIME 31.6 SECONDS (12.5-14.5)
== END ==
LOC: M PLALAB 15:30
PROVIDERS: ATTEND Nurse Practitioner Family
DX: I82.C12 Acute embolism and thrombosis of left internal jugular vein (principal)

== ENCOUNTER → 2022-12-20 | Outpatient (CLI) | payer MEDICARE, BC ==
[2022-12-20 15:01] LABS: INR 1.61; PROTHROMBIN TIME 19.4 SECONDS (12.5-14.5)
== END ==
LOC: M PLALAB 09:49
PROVIDERS: ATTEND Nurse Practitioner Family
DX: I82.C12 Acute embolism and thrombosis of left internal jugular vein (principal)

== ENCOUNTER → 2023-01-03 | Outpatient (CLI) | payer MEDICARE, BC ==
[2023-01-03 13:47] LABS: INR 1.36
== END ==
LOC: M PLALAB 09:42
PROVIDERS: ATTEND Nurse Practitioner Family
DX: I82.C12 Acute embolism and thrombosis of left internal jugular vein (principal)

== ENCOUNTER → 2023-01-17 | Outpatient (CLI) | payer MEDICARE, BC ==
[2023-01-17 13:36] LABS: INR 2.71; PROTHROMBIN TIME 29.2 SECONDS (12.5-14.5)
== END ==
LOC: M PLALAB 10:30
PROVIDERS: ATTEND Nurse Practitioner Family
DX: I82.C12 Acute embolism and thrombosis of left internal jugular vein (principal)

== ENCOUNTER → 2023-01-30 | Outpatient (CLI) | payer MEDICARE, BC ==
[~2023-01-30] MED LIST changes: +GASTROGRAFIN SOLUTION 30ML As Ordered ONE; +ISOVUE-370 76% 100ML VIAL As Ordered ONE
== END ==
LOC: M RAD 07:55
PROVIDERS: ATTEND Internal Medicine Medical Oncology
DX: C50.919 Malignant neoplasm of unspecified site of unspecified female breast (principal)
CPT/HCPCS: 71260; 74177; Q9963; Q9967

== ENCOUNTER → 2023-02-01 | Outpatient (CLI) | payer MEDICARE, BC ==
[~2023-02-01] MED LIST changes: -GASTROGRAFIN SOLUTION 30ML As Ordered ONE; -ISOVUE-370 76% 100ML VIAL As Ordered ONE
[2023-02-01 11:06] LABS: INR 1.62; PROTHROMBIN TIME 19.5 SECONDS (12.5-14.5)
== END ==
LOC: M PLALAB 08:56
PROVIDERS: ATTEND Nurse Practitioner Family
DX: I82.C12 Acute embolism and thrombosis of left internal jugular vein (principal)

== ENCOUNTER → 2023-02-13 | Outpatient (CLI) | payer MEDICARE, BC ==
[2023-02-13 13:24] LABS: INR 2.21; PROTHROMBIN TIME 24.9 SECONDS (12.5-14.5)
== END ==
LOC: M PLALAB 09:33
PROVIDERS: ATTEND Nurse Practitioner Family
DX: I82.C12 Acute embolism and thrombosis of left internal jugular vein (principal)

== ENCOUNTER → 2023-02-27 | Outpatient (CLI) | payer MEDICARE, BC ==
[2023-02-27 13:25] LABS: INR 3.59; PROTHROMBIN TIME 36.4 SECONDS (12.5-14.5)
== END ==
LOC: M PLALAB 09:20
PROVIDERS: ATTEND Nurse Practitioner Family
DX: I82.C12 Acute embolism and thrombosis of left internal jugular vein (principal)

== ENCOUNTER → 2023-03-09 | Outpatient (CLI) | payer MEDICARE, BC ==
[2023-03-09 15:33] LABS: INR 2.78; PROTHROMBIN TIME 29.8 SECONDS (12.5-14.5)
== END ==
LOC: M PLALAB 12:45
PROVIDERS: ATTEND Nurse Practitioner Family
DX: I82.C12 Acute embolism and thrombosis of left internal jugular vein (principal)

== ENCOUNTER → 2023-04-07 | Outpatient (CLI) | payer MEDICARE, BC ==
[~2023-04-07] MED LIST changes: -LIDO1CRE42 TOP; +LIDO30CR18 TOP
[2023-04-07 13:55] LABS: BASO % 0.6 % (0.0-1.0); EOS # 0.1 10^3/uL (0.0-0.5); HEMATOCRIT 39.8 % (36.0-47.0); HEMOGLOBIN 12.8 g/dl (12.0-15.5); LYMPH # 1.3 10^3/uL (1.5-5.0); LYMPH % 18.6 % (24.0-44.0); MEAN CORPUSCULAR HEMOGLOBIN 32.2 pg (27.0-33.0); MEAN CORPUSCULAR HGB CONC 32.2 g/dl (32.0-36.5); MEAN CORPUSCULAR VOLUME 100.3 fl (80.0-96.0); MONO # 0.4 10^3/uL (0.0-0.8); MONO % 6.3 % (2.0-8.0); NEUTROPHILS % 73.2 % (36.0-66.0); PLATELET COUNT, AUTOMATED 194 10^3/uL (150-450); RED BLOOD COUNT 3.97 10^6/uL (4.00-5.40); WHITE BLOOD COUNT 6.9 10^3/uL (4.0-10.0)
[2023-04-07 14:13] LABS: INR 4.22; PROTHROMBIN TIME 41.3 SECONDS (12.5-14.5)
[2023-04-07 14:30] LABS: ALBUMIN 3.7 G/DL (3.2-5.2); ALKALINE PHOSPHATASE 94 U/L (46-116); ALT/SGPT 14 U/L (7.0-40); AST/SGOT 9 U/L (<34); BILIRUBIN,TOTAL 0.5 MG/DL (0.3-1.2); BLOOD UREA NITROGEN 22 MG/DL (9-23); CALCIUM LEVEL 8.9 MG/DL (8.3-10.6); CARBON DIOXIDE LEVEL 28 MMOL/L (20-31); CHLORIDE LEVEL 106 MMOL/L (98-107); CREATININE FOR GFR 0.78 MG/DL (0.55-1.30); GLOMERULAR FILTRATION RATE > 60.0 (>39); GLUCOSE, FASTING 106 MG/DL (74-106); POTASSIUM SERUM 4.1 MMOL/L (3.5-5.1); SODIUM LEVEL 142 MMOL/L (136-145); TOTAL PROTEIN 6.1 G/DL (5.7-8.2)
== END ==
LOC: M PLALAB 10:08
PROVIDERS: ATTEND Nurse Practitioner Family
DX: I10 Essential (primary) hypertension (principal); Z79.01 Long term (current) use of anticoagulants

== ENCOUNTER → 2023-04-12 | Outpatient (CLI) | payer MEDICARE, BC | LOC: M EKG 14:57 | PROVIDERS: ATTEND Internal Medicine Medical Oncology | DX: R00.1 Bradycardia, unspecified (principal) ==

== ENCOUNTER → 2023-04-19 | Outpatient (CLI) | payer MEDICARE, BC ==
[2023-04-19 13:32] LABS: INR 2.27; PROTHROMBIN TIME 25.4 SECONDS (12.5-14.5)
== END ==
LOC: M PLALAB 10:03
PROVIDERS: ATTEND Nurse Practitioner Family
DX: I82.C12 Acute embolism and thrombosis of left internal jugular vein (principal)

== ENCOUNTER → 2023-05-10 | Outpatient (CLI) | payer MEDICARE, BC ==
[2023-05-10 14:19] LABS: INR 1.62; PROTHROMBIN TIME 18.8 SECONDS (12.5-14.5)
== END ==
LOC: M PLALAB 11:07
PROVIDERS: ATTEND Nurse Practitioner Family
DX: I82.C12 Acute embolism and thrombosis of left internal jugular vein (principal); Z79.01 Long term (current) use of anticoagulants

== ENCOUNTER → 2023-05-26 | Outpatient (CLI) | payer MEDICARE, BC ==
[2023-05-26 15:10] LABS: INR 3.31; PROTHROMBIN TIME 32.8 SECONDS (12.5-14.5)
== END ==
LOC: M PLALAB 11:06
PROVIDERS: ATTEND Nurse Practitioner Family
DX: I82.C12 Acute embolism and thrombosis of left internal jugular vein (principal)

== ENCOUNTER → 2023-05-30 | Outpatient (CLI) | payer MEDICARE, BC ==
[~2023-05-30] MED LIST changes: +GASTROGRAFIN SOLUTION 30ML As Ordered ONE; +ISOVUE-370 76% 100ML VIAL As Ordered ONE
== END ==
LOC: M RAD 10:15
PROVIDERS: ATTEND Internal Medicine Medical Oncology
DX: C50.919 Malignant neoplasm of unspecified site of unspecified female breast (principal)
CPT/HCPCS: 70491; 71260; 74177; Q9963; Q9967

== ENCOUNTER → 2023-07-06 | Outpatient (CLI) | payer MEDICARE, BC ==
[~2023-07-06] MED LIST changes: -EMEN150S IV; +FOSA150V36 IV; -GASTROGRAFIN SOLUTION 30ML As Ordered ONE; -ISOVUE-370 76% 100ML VIAL As Ordered ONE
[2023-07-06 13:41] LABS: PROTHROMBIN TIME 49.9 SECONDS (12.5-14.5)
[2023-07-06 14:12] LABS: INR 5.65
== END ==
LOC: M PLALAB 11:45
PROVIDERS: ATTEND Nurse Practitioner Family
DX: I82.C12 Acute embolism and thrombosis of left internal jugular vein (principal)

== ENCOUNTER → 2023-07-10 | Outpatient (CLI) | payer MEDICARE, BC ==
[2023-07-10 14:39] LABS: INR 1.85; PROTHROMBIN TIME 20.8 SECONDS (12.5-14.5)
== END ==
LOC: M PLALAB 09:49
PROVIDERS: ATTEND Nurse Practitioner Family
DX: I82.C12 Acute embolism and thrombosis of left internal jugular vein (principal)

== ENCOUNTER → 2023-07-31 | Outpatient (CLI) | payer MEDICARE, BC ==
[2023-07-31 14:19] LABS: INR 3.49; PROTHROMBIN TIME 33.7 SECONDS (12.5-14.5)
== END ==
LOC: M PLALAB 10:17
PROVIDERS: ATTEND Nurse Practitioner Family
DX: I82.C12 Acute embolism and thrombosis of left internal jugular vein (principal)

== ENCOUNTER → 2023-08-29 | Outpatient (CLI) | payer MEDICARE, BC ==
[2023-08-29 13:29] LABS: INR 3.03; PROTHROMBIN TIME 30.3 SECONDS (12.5-14.5)
== END ==
LOC: M PLALAB 11:12
PROVIDERS: ATTEND Nurse Practitioner Family
DX: I82.C12 Acute embolism and thrombosis of left internal jugular vein (principal)

== ENCOUNTER → 2023-09-14 | Outpatient (CLI) | payer MEDICARE, BC ==
[~2023-09-14] MED LIST changes: +POTA-151 PO; +WARF-22 PO
== END ==
LOC: M RAD 08:20
PROVIDERS: ATTEND Internal Medicine Medical Oncology
DX: C50.912 Malignant neoplasm of unspecified site of left female breast (principal); M89.9 Disorder of bone, unspecified
CPT/HCPCS: 78306; A9503

== ENCOUNTER → 2023-10-02 | Outpatient (CLI) | payer MEDICARE, BC ==
[2023-10-02 13:56] LABS: INR 3.25; PROTHROMBIN TIME 31.9 SECONDS (12.5-14.5)
== END ==
LOC: M PLALAB 11:36
PROVIDERS: ATTEND Nurse Practitioner Family
DX: I82.C12 Acute embolism and thrombosis of left internal jugular vein (principal)

== ENCOUNTER → 2023-10-02 | Outpatient (CLI) | payer MEDICARE, BC ==
[~2023-10-02] MED LIST changes: +GASTROGRAFIN SOLUTION 30ML As Ordered ONE; +ISOVUE-370 76% 100ML VIAL As Ordered ONE
== END ==
LOC: M RAD 08:50
PROVIDERS: ATTEND Internal Medicine Medical Oncology
DX: C50.919 Malignant neoplasm of unspecified site of unspecified female breast (principal); Z79.01 Long term (current) use of anticoagulants
CPT/HCPCS: 36415; 70491; 71260; 74177; 85610; Q9963; Q9967

== ENCOUNTER → 2023-10-12 | Outpatient (CLI) | payer MEDICARE, BC ==
[~2023-10-12] MED LIST changes: -GASTROGRAFIN SOLUTION 30ML As Ordered ONE; -ISOVUE-370 76% 100ML VIAL As Ordered ONE; +PROHANCE 279.3MG/ML 15ML VIAL As Ordered ONE
== END ==
LOC: M RAD 14:59
PROVIDERS: ATTEND Internal Medicine Medical Oncology
DX: M89.9 Disorder of bone, unspecified (principal); C50.919 Malignant neoplasm of unspecified site of unspecified female breast; M19.011 Primary osteoarthritis, right shoulder
CPT/HCPCS: 73220; A9576

== ENCOUNTER → 2023-10-31 | Outpatient (CLI) | payer MEDICARE, BC ==
[~2023-10-31] MED LIST changes: +METH4PACK PO; -PROHANCE 279.3MG/ML 15ML VIAL As Ordered ONE
[2023-10-31 15:54] LABS: BASO # 0.1 10^3/uL (0.0-0.2); BASO % 0.5 % (0.0-1.0); EOS # 0.4 10^3/uL (0.0-0.5); EOS % 2.5 % (0.0-3.0); HEMATOCRIT 38.5 % (36.0-47.0); HEMOGLOBIN 12.1 g/dl (12.0-15.5); LYMPH # 1.8 10^3/uL (1.5-5.0); LYMPH % 12.3 % (24.0-44.0); MEAN CORPUSCULAR HEMOGLOBIN 30.9 pg (27.0-33.0); MEAN CORPUSCULAR HGB CONC 31.4 g/dl (32.0-36.5); MEAN CORPUSCULAR VOLUME 98.2 fl (80.0-96.0); MONO # 1.4 10^3/uL (0.0-0.8); MONO % 9.9 % (2.0-8.0); NEUTROPHILS # 10.5 10^3/uL (1.5-8.5); NEUTROPHILS % 73.4 % (36.0-66.0); PLATELET COUNT, AUTOMATED 199 10^3/uL (150-450); RED BLOOD COUNT 3.92 10^6/uL (4.00-5.40); WHITE BLOOD COUNT 14.2 10^3/uL (4.0-10.0)
[2023-10-31 16:11] LABS: INR 4.31; PROTHROMBIN TIME 39.7 SECONDS (12.5-14.5)
[2023-10-31 16:24] LABS: THYROID STIMULATING HORMONE 2.582 uIU/ML (0.55-4.78); TOTAL 25(OH) VITAMIN D 41.3 NG/ML (20.0-100.0)
[2023-10-31 16:25] LABS: FREE T4 1.38 NG/DL (0.89-1.76)
[2023-10-31 17:17] LABS: ALBUMIN 3.7 G/DL (3.2-5.2); ALKALINE PHOSPHATASE 153 U/L (46-116); ALT/SGPT 14 U/L (7.0-40); AST/SGOT 10 U/L (<34); BILIRUBIN,TOTAL 0.2 MG/DL (0.3-1.2); BLOOD UREA NITROGEN 13 MG/DL (9-23); CARBON DIOXIDE LEVEL 29 MMOL/L (20-31); CHLORIDE LEVEL 103 MMOL/L (98-107); CREATININE FOR GFR 0.74 MG/DL (0.55-1.30); GLOMERULAR FILTRATION RATE > 60.0 (>39); GLUCOSE, FASTING 88 MG/DL (74-106); POTASSIUM SERUM 3.8 MMOL/L (3.5-5.1); SODIUM LEVEL 139 MMOL/L (136-145); TOTAL PROTEIN 6.5 G/DL (5.7-8.2)
== END ==
LOC: M PLALAB 12:15
PROVIDERS: ATTEND Nurse Practitioner Family
DX: I10 Essential (primary) hypertension (principal); E55.9 Vitamin D deficiency, unspecified; E03.9 Hypothyroidism, unspecified; Z79.01 Long term (current) use of anticoagulants

== ENCOUNTER → 2023-11-16 | Outpatient (REF) | payer MEDICARE, BC ==
[2023-11-16 13:55] LABS: INR 3.57; PROTHROMBIN TIME 34.3 SECONDS (12.5-14.5)
== END ==
LOC: M LABDRAWP 13:01
PROVIDERS: ATTEND Nurse Practitioner Family
DX: I82.C12 Acute embolism and thrombosis of left internal jugular vein (principal)

== ENCOUNTER → 2023-11-29 | Outpatient (CLI) | payer MEDICARE, BC ==
[2023-11-29 14:51] LABS: INR 2.51; PROTHROMBIN TIME 26.2 SECONDS (12.5-14.5)
== END ==
LOC: M PLALAB 12:50
PROVIDERS: ATTEND Nurse Practitioner Family
DX: I82.C12 Acute embolism and thrombosis of left internal jugular vein (principal)

== ENCOUNTER → 2023-12-26 | Outpatient (CLI) | payer MEDICARE, BC ==
[~2023-12-26] MED LIST changes: +VITA1CAP25 PO
[2023-12-26 15:36] LABS: INR 3.93
== END ==
LOC: M PLALAB 12:19
PROVIDERS: ATTEND Nurse Practitioner Family
DX: I82.C12 Acute embolism and thrombosis of left internal jugular vein (principal)

== ENCOUNTER → 2024-01-10 | Outpatient (CLI) | payer MEDICARE, BC ==
[2024-01-10 13:14] LABS: INR 2.44; PROTHROMBIN TIME 25.6 SECONDS (12.5-14.5)
== END ==
LOC: M PLALAB 10:15
PROVIDERS: ATTEND Nurse Practitioner Family
DX: I82.C12 Acute embolism and thrombosis of left internal jugular vein (principal)

== ENCOUNTER → 2024-02-07 | Outpatient (CLI) | payer MEDICARE, BC ==
[2024-02-07 15:38] LABS: INR 1.71; PROTHROMBIN TIME 19.5 SECONDS (12.5-14.5)
== END ==
LOC: M PLALAB 12:46
PROVIDERS: ATTEND Nurse Practitioner Family
DX: C12 Malignant neoplasm of pyriform sinus (principal); Z79.01 Long term (current) use of anticoagulants

== ENCOUNTER → 2024-02-15 | Outpatient (CLI) | payer MEDICARE, BC | LOC: M PLARAD 09:18 | PROVIDERS: ATTEND Internal Medicine Medical Oncology | DX: Z12.31 Encounter for screening mammogram for malignant neoplasm of breast (principal); R42 Dizziness and giddiness ==

== ENCOUNTER → 2024-02-22 | Outpatient (CLI) | payer MEDICARE, BC ==
[2024-02-22 13:34] LABS: INR 2.42; PROTHROMBIN TIME 25.5 SECONDS (12.5-14.5)
== END ==
LOC: M PLALAB 10:59
PROVIDERS: ATTEND Nurse Practitioner Family
DX: I82.C12 Acute embolism and thrombosis of left internal jugular vein (principal)

== ENCOUNTER → 2024-03-13 | Outpatient (CLI) | payer MEDICARE, BC ==
[2024-03-13 13:04] LABS: INR 3.21; PROTHROMBIN TIME 31.6 SECONDS (12.5-14.5)
== END ==
LOC: M PLALAB 10:29
PROVIDERS: ATTEND Nurse Practitioner Family
DX: I82.C12 Acute embolism and thrombosis of left internal jugular vein (principal)

== ENCOUNTER → 2024-04-04 | Outpatient (CLI) | payer MEDICARE, BC ==
[~2024-04-04] MED LIST changes: +SYST1SOL4 OD
[2024-04-04 15:07] LABS: INR 2.76; PROTHROMBIN TIME 28.2 SECONDS (12.5-14.5)
== END ==
LOC: M PLALAB 11:45
PROVIDERS: ATTEND Nurse Practitioner Family
DX: I82.C12 Acute embolism and thrombosis of left internal jugular vein (principal)

== ENCOUNTER → 2024-04-30 | Outpatient (CLI) | payer MEDICARE, BC ==
[~2024-04-30] MED LIST changes: +PRED10TA2
[2024-04-30 11:00] LABS: INR 3.61; PROTHROMBIN TIME 34.7 SECONDS (12.5-14.5)
== END ==
LOC: M PLALAB 08:29
PROVIDERS: ATTEND Nurse Practitioner Family
DX: I82.C12 Acute embolism and thrombosis of left internal jugular vein (principal)

== ENCOUNTER → 2024-05-17 | Outpatient (CLI) | payer MEDICARE, BC ==
[~2024-05-17] MED LIST changes: +POTA8CAP10 PO
== END ==
LOC: M PLALAB 11:17
PROVIDERS: ATTEND Nurse Practitioner Family
DX: I82.C12 Acute embolism and thrombosis of left internal jugular vein (principal)

== ENCOUNTER → 2024-06-03 | Outpatient (CLI) | payer MEDICARE, BC | LOC: M PLALAB 09:05 | PROVIDERS: ATTEND Nurse Practitioner Family | DX: I82.C12 Acute embolism and thrombosis of left internal jugular vein (principal); M25.551 Pain in right hip; M16.11 Unilateral primary osteoarthritis, right hip; M47.816 Spondylosis without myelopathy or radiculopathy, lumbar region; M43.16 Spondylolisthesis, lumbar region ==

== ENCOUNTER → 2024-06-26 | Outpatient (CLI) | payer MEDICARE, BC ==
[~2024-06-26] MED LIST changes: +GASTROGRAFIN SOLUTION 30ML As Ordered ONE; +ISOVUE-370 76% 100ML VIAL As Ordered ONE
== END ==
LOC: M RAD 07:45
PROVIDERS: ATTEND Dietitian, Registered
DX: Z12.31 Encounter for screening mammogram for malignant neoplasm of breast (principal)
CPT/HCPCS: 70491; 71260; 74177; Q9963; Q9967

== ENCOUNTER → 2024-07-02 | Outpatient (CLI) | payer MEDICARE, BC ==
[~2024-07-02] MED LIST changes: -GASTROGRAFIN SOLUTION 30ML As Ordered ONE; -ISOVUE-370 76% 100ML VIAL As Ordered ONE
[2024-07-02 12:50] LABS: INR 2.57; PROTHROMBIN TIME 26.7 SECONDS (12.5-14.5)
== END ==
LOC: M PLALAB 09:31
PROVIDERS: ATTEND Nurse Practitioner Family
DX: I82.C12 Acute embolism and thrombosis of left internal jugular vein (principal)

== ENCOUNTER → 2024-07-23 | Outpatient (CLI) | payer MEDICARE, BC ==
[2024-07-23 13:19] LABS: INR 2.96; PROTHROMBIN TIME 30.7 SECONDS (12.5-14.5)
== END ==
LOC: M PLALAB 09:38
PROVIDERS: ATTEND Nurse Practitioner Family
DX: I82.C12 Acute embolism and thrombosis of left internal jugular vein (principal)

== ENCOUNTER → 2024-08-06 | Outpatient (REF) | payer MEDICARE, BC | LOC: M LAB REF 17:11 | PROVIDERS: ATTEND Family Medicine | DX: R35.0 Frequency of micturition (principal) ==

== ENCOUNTER → 2024-08-27 | Outpatient (CLI) | payer MEDICARE, BC ==
[2024-08-27 13:12] LABS: INR 1.66; PROTHROMBIN TIME 19.8 SECONDS (12.5-14.5)
== END ==
LOC: M PLALAB 10:45
PROVIDERS: ATTEND Nurse Practitioner Family
DX: I82.C12 Acute embolism and thrombosis of left internal jugular vein (principal)

== ENCOUNTER → 2024-09-10 | Outpatient (CLI) | payer MEDICARE, BC ==
[2024-09-10 12:39] LABS: INR 1.98; PROTHROMBIN TIME 22.7 SECONDS (12.5-14.5)
== END ==
LOC: M PLALAB 11:06
PROVIDERS: ATTEND Nurse Practitioner Family
DX: I82.C12 Acute embolism and thrombosis of left internal jugular vein (principal)

== ENCOUNTER → 2024-09-16 | Outpatient (REF) | payer MEDICARE, BC | LOC: M LAB REF 17:13 | PROVIDERS: ATTEND Registered Nurse | DX: R35.0 Frequency of micturition (principal) ==

== ENCOUNTER → 2024-09-23 | Outpatient (CLI) | payer MEDICARE, BC ==
[2024-09-23 10:05] LABS: INR 2.57; PROTHROMBIN TIME 27.6 SECONDS (12.5-14.5)
== END ==
LOC: M PLALAB 09:00
PROVIDERS: ATTEND Nurse Practitioner Family
DX: I82.C12 Acute embolism and thrombosis of left internal jugular vein (principal)

== ENCOUNTER → 2024-10-07 | Outpatient (CLI) | payer MEDICARE, BC ==
[~2024-10-07] MED LIST changes: +ISOVUE-370 76% 100ML VIAL As Ordered ONE
== END ==
LOC: M RAD 08:31
PROVIDERS: ATTEND Nurse Practitioner Women's Health
DX: C50.919 Malignant neoplasm of unspecified site of unspecified female breast (principal)
CPT/HCPCS: 70491; 71260; 74177; Q9967

== ENCOUNTER → 2024-10-21 | Outpatient (CLI) | payer MEDICARE, BC ==
[~2024-10-21] MED LIST changes: -ISOVUE-370 76% 100ML VIAL As Ordered ONE
[2024-10-21 10:07] LABS: BASO # 0.1 10^3/uL (0.0-0.2); BASO % 0.8 % (0.0-1.0); EOS # 0.1 10^3/uL (0.0-0.5); EOS % 1.5 % (0.0-3.0); HEMATOCRIT 36.7 % (36.0-47.0); HEMOGLOBIN 11.9 g/dl (12.0-15.5); LYMPH # 1.2 10^3/uL (1.5-5.0); LYMPH % 16.3 % (24.0-44.0); MEAN CORPUSCULAR HEMOGLOBIN 31.4 pg (27.0-33.0); MEAN CORPUSCULAR HGB CONC 32.4 g/dl (32.0-36.5); MEAN CORPUSCULAR VOLUME 96.8 fl (80.0-96.0); MONO # 0.3 10^3/uL (0.0-0.8); MONO % 3.7 % (2.0-8.0); NEUTROPHILS # 5.6 10^3/uL (1.5-8.5); NEUTROPHILS % 76.6 % (36.0-66.0); PLATELET COUNT, AUTOMATED 153 10^3/uL (150-450); RED BLOOD COUNT 3.79 10^6/uL (4.00-5.40); WHITE BLOOD COUNT 7.3 10^3/uL (4.0-10.0)
[2024-10-21 10:24] LABS: INR 2.3; PROTHROMBIN TIME 25.3 SECONDS (12.5-14.5)
[2024-10-21 10:31] LABS: ALBUMIN 3.8 G/DL (3.2-5.2); ALKALINE PHOSPHATASE 133 U/L (35-104); ALT/SGPT 11 U/L (7.0-40); AST/SGOT < 8 U/L (<34); BILIRUBIN,TOTAL 0.6 MG/DL (0.3-1.2); BLOOD UREA NITROGEN 23 MG/DL (9-23); CALCIUM LEVEL 9.1 MG/DL (8.3-10.6); CARBON DIOXIDE LEVEL 28 MMOL/L (20-31); CHLORIDE LEVEL 107 MMOL/L (98-107); CHOLESTEROL LEVEL 210 MG/DL (<200); CHOLESTEROL RISK RATIO 3.34 (<5); CREATININE FOR GFR 0.69 MG/DL (0.55-1.30); GLOMERULAR FILTRATION RATE > 60.0 (>39); GLUCOSE, FASTING 100 MG/DL (74-106); HDL CHOLESTEROL 62.7 MG/DL (>40); LDL CHOLESTEROL 114.5 MG/DL (<100); NON-HDL-C 147.3 MG/DL; POTASSIUM SERUM 4.2 MMOL/L (3.5-5.1); SODIUM LEVEL 142 MMOL/L (136-145); TOTAL PROTEIN 6.5 G/DL (5.7-8.2); TRIGLYCERIDES LEVEL 164 MG/DL (<150)
[2024-10-21 10:36] LABS: FREE T4 1.79 NG/DL (0.89-1.76); THYROID STIMULATING HORMONE 2.035 uIU/ML (0.55-4.78); TOTAL 25(OH) VITAMIN D 36.2 NG/ML (20.0-100.0)
== END ==
LOC: M PLALAB 08:27
PROVIDERS: ATTEND Nurse Practitioner Family
DX: I82.C12 Acute embolism and thrombosis of left internal jugular vein (principal); E78.00 Pure hypercholesterolemia, unspecified

== ENCOUNTER → 2024-11-19 | Outpatient (CLI) | payer MEDICARE, BC ==
[2024-11-19 13:39] LABS: INR 1.68
== END ==
LOC: M PLALAB 10:25
PROVIDERS: ATTEND Nurse Practitioner Family
DX: I82.C12 Acute embolism and thrombosis of left internal jugular vein (principal)

== ENCOUNTER → 2025-01-21 | Outpatient (CLI) | payer MEDICARE, BC ==
[2025-01-21 10:28] LABS: INR 4.91
== END ==
LOC: M PLALAB 08:01
PROVIDERS: ATTEND Nurse Practitioner Family
DX: I82.C12 Acute embolism and thrombosis of left internal jugular vein (principal)

== ENCOUNTER → 2025-01-28 | Outpatient (CLI) | payer MEDICARE, BC ==
[2025-01-28 13:33] LABS: INR 1.98; PROTHROMBIN TIME 22.6 SECONDS (12.5-14.5)
== END ==
LOC: M PLALAB 12:04
PROVIDERS: ATTEND Nurse Practitioner Family
DX: I82.C12 Acute embolism and thrombosis of left internal jugular vein (principal)

== ENCOUNTER → 2025-02-06 | Outpatient (CLI) | payer MEDICARE, BC ==
[~2025-02-06] MED LIST changes: +ISOVUE-370 76% 100ML VIAL As Ordered ONE; +ONDA-84 PO
== END ==
LOC: M RAD 09:02
PROVIDERS: ATTEND Internal Medicine Medical Oncology
DX: C50.919 Malignant neoplasm of unspecified site of unspecified female breast (principal)
CPT/HCPCS: 70491; 71260; 74177; Q9967

== ENCOUNTER → 2025-02-11 | Outpatient (CLI) | payer MEDICARE, BC ==
[~2025-02-11] MED LIST changes: -ISOVUE-370 76% 100ML VIAL As Ordered ONE
[2025-02-11 10:06] LABS: INR 2.07; PROTHROMBIN TIME 23.4 SECONDS (12.5-14.5)
== END ==
LOC: M PLALAB 08:32
PROVIDERS: ATTEND Nurse Practitioner Family
DX: I82.C12 Acute embolism and thrombosis of left internal jugular vein (principal)

== ENCOUNTER → 2025-04-23 | Outpatient (CLI) | payer MEDICARE, BC ==
[~2025-04-23] MED LIST changes: +PERC5TAB12 PO
[2025-04-23 15:24] LABS: INR 1.26
== END ==
LOC: M PLALAB 13:02
PROVIDERS: ATTEND Nurse Practitioner Family
DX: I82.C12 Acute embolism and thrombosis of left internal jugular vein (principal); Z79.01 Long term (current) use of anticoagulants

== ENCOUNTER → 2025-05-12 | Outpatient (CLI) | payer MEDICARE, BC ==
[2025-05-12 13:14] LABS: INR 2.11
== END ==
LOC: M PLALAB 09:41
PROVIDERS: ATTEND Nurse Practitioner Family
DX: Z79.01 Long term (current) use of anticoagulants (principal)

== ENCOUNTER → 2025-06-17 | Outpatient (CLI) | payer MEDICARE, BC ==
[2025-06-17 11:14] LABS: INR 2.48
== END ==
LOC: M PLALAB 08:13
PROVIDERS: ATTEND Nurse Practitioner Family
DX: Z79.01 Long term (current) use of anticoagulants (principal)

== ENCOUNTER → 2025-07-16 | Outpatient (CLI) | payer MEDICARE, BC ==
[2025-07-16 15:20] LABS: INR 1.81
== END ==
LOC: M PLALAB 12:42
PROVIDERS: ATTEND Nurse Practitioner Family
DX: Z79.01 Long term (current) use of anticoagulants (principal)

== ENCOUNTER → 2025-07-29 | Outpatient (CLI) | payer MEDICARE, BC ==
[~2025-07-29] MED LIST changes: +ISOVUE-370 76% 100 ML VIAL As Ordered ONE
== END ==
LOC: M RAD 08:28
PROVIDERS: ATTEND Internal Medicine Medical Oncology
DX: Z85.3 Personal history of malignant neoplasm of breast (principal); K44.9 Diaphragmatic hernia without obstruction or gangrene; N28.1 Cyst of kidney, acquired; K57.90 Diverticulosis of intestine, part unspecified, without perforation or abscess without bleeding; R16.1 Splenomegaly, not elsewhere classified; R91.8 Other nonspecific abnormal finding of lung field; I25.10 Atherosclerotic heart disease of native coronary artery without angina pectoris

== ENCOUNTER → 2025-08-01 | Outpatient (CLI) | payer MEDICARE, BC ==
[~2025-08-01] MED LIST changes: -ISOVUE-370 76% 100 ML VIAL As Ordered ONE
[2025-08-01 13:21] LABS: INR 2.28
== END ==
LOC: M PLALAB 11:11
PROVIDERS: ATTEND Nurse Practitioner Family
DX: Z51.81 Encounter for therapeutic drug level monitoring (principal); Z79.01 Long term (current) use of anticoagulants